=== PATIENT | male | born 1950 | race Caucasian/White ===

== ENCOUNTER 2020-08-14 13:03 | Emergency (ER) | payer MEDICARE, BC, SELFPAY ==
--- NOTE | ~2020-08-14 | XR_ITS ---
EXAMINATION:XR cervical spine 4-5V DATE: 08/14/2020 15:26 INDICATION: Neck pain TECHNIQUE: AP, lateral, lateral swimmers and odontoid views of the cervical spine are provided. COMPARISON: 02/03/2005 FINDINGS: Alignment is normal. There are changes of anterior fusion from C4 through C7 with plate and screw fixation from C5 through C7. The orthopedic hardware is intact. The odontoid is intact. No fra cture is identified. The vertebral body heights are normal. There is moderate loss of intervertebral disc space height at C3-4. There is advanced facet osteoarthritis at C3-4. Prevertebral soft tissues are normal. IMPRESSION: 1. Moderate cervical spondylosis and changes of anterior fusion without acute findings or significant interval change. Reviewed, dictated and finalized at location A. IMPRESSION: 1. Moderate cervical spondylosis and changes of anterior fusion without acute f indings or significant interval change.
[2020-08-14 13:08] VITALS: BP 117/60; PULSE 78; RESP 18; TEMP 36.2; O2SAT 98
--- NOTE | 2020-08-14 13:12 | ECG_ITS ---
Measurements Intervals Marks Rate: 77 P: 71 OH: 145 QRS: -26 QRSD: 105 T: 75 QT: 362 QTc: 410 Interpretive Statements SINUS RHYTHM INCOMPLETE RIGHT BUNDLE BRANCH BLOCK ANTEROSEPTAL INFARCT, AGE INDETERMINATE BASELINE ARTIFACT- I, III, AVR, AVL, AVF, V2 ABNORMAL ECG Electronically Signed On 08-14-2020 13:26:35 CDT by Calvin Vasquez D.O.
--- NOTE | 2020-08-14 14:59 | ED.GENADULT ---
HPI - General Adult General Chief complaint: Neck Pain/Injury <Gavin Mccray PA-C - Last Filed: 08/14/20 16:37> Stated complaint: neck pain, chronic arm pain onset 0300 this am <Gavin Mccray PA-C - Last Filed: 08/14/20 16:37> Time Seen by Provider: 08/14/20 14:35 <VESTA Galloway Last Filed: 08/14/20 16:37> History of Present Illness HPI narrative: Pain in over entire posterior neck radiating into posterior head. Pain for the last 5 days. No NANI. Pain is constant, sharp with movments. Dull at rest. Made worse with movements of head & neck. Had some radiating pain down left arm intermittently x since last night. Admits to previous history of similar sxs - once was due to loose hardware that required surgery, another time he had this pain is was actually an [place]. Has been trying heat at home. Takes tramadol for chronic back pain, this is not helping with his neck pain. No fevers, CP, SOB. No numbness or weakness. <VESTA Galloway Last Filed: 08/14/20 16:37> Related Data Home medications: Home Medications Medication Instructions Recorded Confirmed albuterol sulfate [ProAir HFA] INHALATION 08/14/20 alprazolam 08/14/20 atorvastatin 08/14/20 baclofen mg 08/14/20 clopidogrel 08/14/20 escitalopram oxalate mg 08/14/20 fluticasone propionate INTRANASAL 08/14/20 metoprolol succinate PO 08/14/20 nitroglycerin mg 08/14/20 pregabalin 08/14/20 ranolazine mg PO 08/14/20 tramadol mg 08/14/20 08/14/20 <VESTA Galloway Last Filed: 08/14/20 16:37> Allergies/adverse reactions: Allergies Allergy/AdvReac Type Severity Reaction Status Date / Time No Known Allergies Allergy Verified 08/14/20 13:10 <VESTA Galloway Last Filed: 08/14/20 16:37> Review of Systems Constitutional: Constitutional: Reports as per HPI, Denies fever(s), Denies night sweats and Denies weakness <Gavin EnnisVESTA newton - Last Filed: 08/14/20 16:37> Cardiovascular: Cardiovascular: Denies chest pain, Denies edema, Denies leg edema, Denies dyspnea and Denies orthopnea <Gavin DohertyVESTA cannon - Last Filed: 08/14/20 16:37> Respiratory: Respiratory: Denies cough and Denies dyspnea <Gavin EnnisVESTA newton - Last Filed: 08/14/20 16:37> Gastrointestinal: Gastrointestinal: Denies abdominal pain, Denies constipation, Denies diarrhea, Denies nausea and Denies vomiting <Gavin Galvez VESTA Mccray Last Filed: 08/14/20 16:37> Musculoskeletal: Musculoskeletal: Denies abnormal gait, Denies back pain, Reports neck pain, Denies numbness and Denies tingling <Gavin EnnisVESTA newton - Last Filed: 08/14/20 16:37> Neurologic: Denies Abnormal speech present, Denies abnormal gait, Denies numbness, Denies tingling and Denies weakness <Gavin EnnisVESTA newton - Last Filed: 08/14/20 16:37> Psychiatric: Psychiatric: Denies homicidal ideation and Denies suicidal ideation <Gavin EnnisVESTA newton Last Filed: 08/14/20 16:37> [facility] Social History Social History: Social History Gender identity (if verbalized by the patient): Male <Gavin AlfaroVESTA Otero Last Filed: 08/14/20 16:37> Exam Const: General: cooperative, healthy appearing, comfortable, no acute distress, well developed, alert, awake and Physically active <Gavin DominicVESTA Otero Last Filed: 08/14/20 16:37> Orientation/consciousness: patient oriented x3 <Gavin DominicVESTA Otero Last Filed: 08/14/20 16:37> HENMT: Head: normal to inspection, normocephalic and atraumatic <Gavin DominicVESTA Otero Last Filed: 08/14/20 16:37> Ears: external ears normal <Gavin Mccray PA-C - Last Filed: 08/14/20 16:37> General nose exam: Normal external nose present <VESTA Galloway Last Filed: 08/14/20 16:37> Eyes: Pupils: Equal, round and reactive pupils present <VESTA Galloway Last Filed: 08/14/20 16:37> EOM: EOMs intact bilaterally <St
[2020-08-14 16:12] LABS: Troponin I < 0.012 ng/mL (0.000-0.034)
[2020-08-14 16:15] VITALS: BP 126/99; PULSE 72; RESP 18; TEMP 36.1; O2SAT 98
[2020-08-14] MEDS: oxyCODONE/ACETAMINOPHEN (*CRX) 5-325 MG TABLET 1 TABLET PO (16:17)
[2020-08-14] MEDS: KETOROLAC (*BKC) 60 MG/2 ML VIAL (16:17)
== END 2020-08-14 16:51 | disposition home or self-care (01) ==
PROVIDERS: Physician Assistant Medical; Emergency Provider General Practice; PCP Nurse Practitioner Adult Health
DX: S16.1XXA Strain of muscle, fascia and tendon at neck level, initial encounter (principal); I25.2 Old myocardial infarction; X58.XXXA Exposure to other specified factors, initial encounter; I45.10 Unspecified right bundle-branch block
CPT/HCPCS: 36415; 72050; 84484; 93005; 99284; A9270; J1885

== ENCOUNTER → 2021-01-28 04:07 | Outpatient (CLI) | payer MEDICARE, BC, SELFPAY ==
[2021-01-28 18:26] LABS: SARS-CoV-2 RNA PCR Negative
== END ==
PROVIDERS: PCP Nurse Practitioner Adult Health; Visit Provider Anesthesiology
DX: G90.523 Complex regional pain syndrome I of lower limb, bilateral (principal); Z20.822 Contact with and (suspected) exposure to COVID-19
CPT/HCPCS: C9803; U0003; U0005

== ENCOUNTER → 2021-04-22 04:04 | Outpatient (CLI) | payer MEDICARE, BC, SELFPAY ==
[2021-04-25 20:38] LABS: SARS-CoV-2 RNA PCR Negative
== END ==
PROVIDERS: PCP Nurse Practitioner Adult Health; Visit Provider Nurse Practitioner Adult Health
DX: R68.89 Other general symptoms and signs (principal); Z20.822 Contact with and (suspected) exposure to COVID-19
CPT/HCPCS: C9803; U0003; U0005

== ENCOUNTER → 2022-02-28 08:44 | Outpatient (CLI) | payer MEDICARE, BC, SELFPAY ==
--- NOTE | ~2022-02-28 | US_ITS ---
US scrotum doppler DATE: 02/28/2022 09:22 INDICATION: Left scrotal lump for one week TECHNIQUE: Attending, flow imaging and Doppler analysis of the scrotal contents COMPARISON: None FINDINGS: Moderately prominent bilateral hydroceles are noted. There is homogeneous and symmetric ech otexture of the testicles. No testicular mass lesion or torsion is detected. Vascular flow is noted t o both testicles. Within the left scrotal sac adjacent to the epididymis is an approximately 1.2 x 1.4 cm soft tissue d ensity with prominent central calcifications, benign in appearance. No varicocele is evident. IMPRESSION: Moderate bilateral hydroceles No testicular mass lesion or torsion Reviewed, dictated and finalized at Location A. Reviewed, dictated and finalized at location A.
== END ==
PROVIDERS: PCP Nurse Practitioner Adult Health; Visit Provider Nurse Practitioner Adult Health
DX: N50.89 Other specified disorders of the male genital organs (principal); N43.3 Hydrocele, unspecified
CPT/HCPCS: 76870; 93976

== ENCOUNTER 2023-02-28 11:32 | Outpatient (CLI) | payer MEDICARE, BC, SELFPAY ==
--- NOTE | ~2023-02-28 | XR_ITS ---
Right Hand Technique: PA, oblique, and lateral views were obtained. Clinical History: Osteoarthritis Findings: No acute fracture or dislocation is seen. There is mild degenerative change of the interpha langeal joint of the thumb. Soft tissues are unremarkable. Impression: Mild degenerative change of the interphalangeal joint of the thumb. Reviewed, dictated and finalized at location . Impression: Mild degenerative change of the interphalangeal joint of the thumb.
--- NOTE | ~2023-02-28 | XR_ITS ---
Left Hand Technique: PA, oblique, and lateral views were obtained. Clinical History: Osteoarthritis Findings: No acute fracture or dislocation is seen. Osseous alignment is anatomic. Joint spaces are p reserved. Soft tissues are unremarkable. Impression: Unremarkable left hand. Reviewed, dictated and finalized at location M. Impression: Unremarkable left hand.
== END 2023-02-28 11:33 | disposition home or self-care (01) ==
LOC: ANHBWCIMG 11:34
PROVIDERS: PCP Family Medicine; Visit Provider Nurse Practitioner Adult Health
DX: M19.041 Primary osteoarthritis, right hand (principal)
CPT/HCPCS: 73130

== ENCOUNTER 2023-03-26 13:57 | Outpatient (CLI) | payer MEDICARE, BC, SELFPAY ==
--- NOTE | 2023-03-26 15:00 | NEURO_ITS ---
Impression: # Complains of numbness of fingers. Has bilateral flexion contracture of fingers. # Bilateral mild Carpal Tunnel Syndrome. # Bilateral ulnar neuropathy across the elbows. # Normal needle/EMG exam. Nerve Conduction Studies Anti Sensory Summary Table Stim Site NR Peak (ms) P-T Amp (?V) Site1 Site2 Delta-P (ms) Dist (cm) Raghavendra (m/s) Left Median Anti Sensory (2-3nd Digit) Wrist 4.2 19.7 Wrist 2-3nd Digit 4.2 14.0 33 Wrist 4.3 21.0 Wrist 2-3nd Digit 4.2 14.0 33 Right Median Anti Sensory (2-3nd Digit) Wrist 3.8 20.7 Wrist 2-3nd Digit 3.8 14.0 37 Wrist 3.9 14.8 Wrist 2-3nd Digit 3.8 14.0 37 Left Radial Anti Sensory (Base 1st Digit) Wrist 2.2 18.4 Wrist Base 1st Digit 2.2 0.0 Right Radial Anti Sensory (Base 1st Digit) Wrist 2.2 17.5 Wrist Base 1st Digit 2.2 0.0 Left Ulnar Anti Sensory (5th Digit) Wrist 2.4 42.2 Wrist 5th Digit 2.4 14.0 58 Right Ulnar Anti Sensory (5th Digit) Wrist 2.6 33.7 Wrist 5th Digit 2.6 14.0 54 Motor Summary Table Stim Site NR Onset (ms) O-P Amp (mV) Site1 Site2 Delta-0 (ms) Dist (cm) Raghavendra (m/s) Left Median Motor (Abd Poll Brev) Wrist 4.0 4.2 Elbow Wrist 4.9 29.0 59 Elbow 8.9 4.3 Right Median Motor (Abd Poll Brev) Wrist 3.7 2.2 Elbow Wrist 4.7 28.0 60 Elbow 8.4 1.7 Left Ulnar Motor (Abd Dig Minimi) Wrist 2.3 6.1 A Elbow Wrist 5.9 29.0 49 A Elbow 8.2 6.0 B Elbow Wrist 4.2 23.0 55 B Elbow 6.5 3.3 Right Ulnar Motor (Abd Dig Minimi) Wrist 2.3 6.7 A Elbow Wrist 5.7 29.0 51 A Elbow 8.0 6.3 B Elbow Wrist 3.5 20.0 57 B Elbow 5.8 3.4 F Wave Studies NR F-Lat (ms) L-R F-Lat (ms) Left Median (Mrkrs) (Abd Poll Brev) 27.84 0.99 Right Median (Mrkrs) (Abd Poll Brev) 28.83 0.99 Left Ulnar (Mrkrs) (Abd Dig Min) 28.83 0.47 Right Ulnar (Mrkrs) (Abd Dig Min) 29.30 0.47 EMG Side Muscle Nerve Root Ins Act Fibs Amp Dur Recrt Comment Right 1stDorInt Ulnar C8-T1 Nml Nml Nml Nml Nml Right Ext Indicis Radial (Post Int) C7-8 Nml Nml Nml Nml Nml Right Ext Digitorum Radial (Post Int) C7-8 Nml Nml Nml Nml Nml Right BrachioRad Radial C5-6 Nml Nml Nml Nml Nml Right PronatorTeres Median C6-7 Nml Nml Nml Nml Nml Right Abd Poll Brev Median C8-T1 Nml Nml Nml Nml Nml Left 1stDorInt Ulnar C8-T1 Nml Nml Nml Nml Nml Left Ext Indicis Radial (Post Int) C7-8 Nml Nml Nml Nml Nml Left Ext Digitorum Radial (Post Int) C7-8 Nml Nml Nml Nml Nml Left BrachioRad Radial C5-6 Nml Nml Nml Nml Nml Left PronatorTeres Median C6-7 Nml Nml Nml Nml Nml Left Abd Poll Brev Median C8-T1 Nml Nml Nml Nml Nml MTDD
== END 2023-03-26 13:58 | disposition home or self-care (01) ==
LOC: ANHNEURO 13:59
PROVIDERS: PCP Family Medicine; Visit Provider Plastic Surgery
DX: G56.03 Carpal tunnel syndrome, bilateral upper limbs (principal); G56.23 Lesion of ulnar nerve, bilateral upper limbs
CPT/HCPCS: 95886; 95911

== ENCOUNTER 2023-06-20 00:30 | Day surgery (SDC) | payer MEDICARE, BC, SELFPAY ==
--- NOTE | 2023-06-07 13:20 | PC.NURSE ---
Report to the Outpatient Waiting Room, entrance under the green pavilion located off [facility], at time _0830 on date _06/20/23 . Planned Procedure Time: __1030 . Time changes happen often and if your time is changed the preop area will call you the afternoon before. - You and your visitor will be asked to self-screen and do not enter if you have any COVID symptoms. - A mask is optional within the hospital at this time. NOTHING TO EAT OR DRINK 8 HOURS PRIOR TO SURGERY PER DR ABERNATHY Take the following medications with a SIP of water the morning of surgery: _ALPRAZOLAM, ISOSORBIDE,METOPROLOL,PREGABALIN DO NOT STOP ANY OF YOUR OTHER PRESCRIPTION MEDICATIONS PRIOR TO SURGERY ?EXCEPT THE FOLLOWING Medications to discontinue per physician ___PT TO CALL DR NUÑEZ REGARDING WHEN TO HOLD ASPIRIN AND PLAVIX Please no make-up, nail andorran, hairspray, perfume, deodorant, or body powder the day of surgery. No jewelry (including any body piercings) or valuables the day of surgery, leave them at home. Please take a shower or bath the night before, or the morning of, surgery with an antibacterial soap. Wear comfortable, loose fitting clothing. Children are encouraged to wear pajamas. - Jewelry must be removed prior to entering the operating room. Rings and piercings that are not removed may be cut off. - The hospital will not accept responsibility for valuables. - Please leave all valuables, including medications, at home the day of surgery. If you are going home after surgery, a licensed pile driver must drive you home. - NO public transportation without another adult if you receive anesthesia. - We recommend that an adult stay with you for 24 hours following discharge. - We also recommend that you do not drive, make important decision, drink alcoholic beverages, or take any drugs that were not prescribed by your health care provider for at least 24 hours after your discharge time. Follow any additional instructions given to you from your surgeon. If you or anyone in your household have experienced Covid symptoms in the past week, please notify your surgeon or the nurse liaison at the phone number below for possible testing. Telephone instructions given to __PATIENT and asked if any additional questions and then verbalized understanding. Patient advised to call surgeon office or pre surgery nurse liaison [phone] if any additional questions.
[2023-06-07 13:28] VITALS: BMI 28.8
--- NOTE | 2023-06-19 14:23 | WPDANESEPPF ---
Anes - Initial Pre Proc Eval Procedure: Operation Date: 06/20/23 10:00 Proposed Procedures p Left Endoscopic Carpal Tunnel Release, Possible Open, - Ramses Shabazz MD s Left Cubital Tunnel Release, Left Middle and Ring Finger A1 Shabnam Release, Right Middle and Ring Finger Steroid Injection - Ramses Shabazz MD Date/Time: 06/19/23 14:23 Surgeon: Ramses Shabazz MD Pre Op Diagnosis: trigger finger of all digit both hands, carpal tu Patient Data Age: 72 Gender: M Height: 1.75 m Weight: 88.45 kg Allergies Allergy/AdvReac Type Severity Reaction Status Date / Time No Known Allergies Allergy Verified 06/27/23 10:47 Home Medications Medication Instructions Recorded Confirmed Type albuterol sulfate 90 mcg/actuation 1 puff inhalation PRN PRN 08/14/20 06/27/23 History aerosol inhaler (ProAir HFA) Shortness Of Breath atorvastatin 40 mg tablet 40 mg PO DAILY 08/14/20 06/27/23 History clopidogrel 75 mg tablet 75 mg PO DAILY 08/14/20 06/27/23 History escitalopram oxalate 10 mg tablet 10 mg PO HS 08/14/20 06/27/23 History fluticasone propionate 50 2 spray intranasal PRN PRN Allergy 08/14/20 06/27/23 History mcg/actuation nasal Symptoms spray,suspension metoprolol succinate 25 mg 25 mg PO DAILY 08/14/20 06/27/23 History tablet,extended release 24 hr nitroglycerin 0.4 mg sublingual 0.4 mg sublingual PRN PRN Chest 08/14/20 06/27/23 History tablet Pain isosorbide mononitrate 60 mg 60 mg PO DAILY 11/28/22 06/27/23 History tablet,extended release 24 hr lidocaine 5 % topical patch 2 patch topical DAILY 11/28/22 06/27/23 History (Lidoderm) alprazolam 0.25 mg tablet 0.25 mg PO DAILY PRN anxiety #30 05/17/23 06/27/23 Rx tabs pregabalin 150 mg capsule 150 mg PO BID #60 caps 05/17/23 06/27/23 Rx aspirin 81 mg tablet,delayed 81 mg PO DAILY 06/07/23 06/27/23 History release (Adult Low Dose Aspirin) baclofen 10 mg tablet 10 mg PO PRN PRN muscle spasm 06/07/23 06/27/23 History tramadol 50 mg tablet 50 mg PO Q6H PRN pain #8 tabs 06/20/23 06/27/23 Rx Patient hx anesthesia problems: none Family hx anesthesia problems: none Results Review: All pre-operative results and documents have been reviewed as part of the pre-operative evaluation. [facility] Past Medical History Medical History (Updated 06/27/23 @ 11:03 by Destiny Magana APRN) CAD (coronary artery disease) History of heart attack Hypertension TIA (transient ischemic attack) 2003 Surgical History Surgical History (Updated 06/19/23 @ 14:25 by Gavin Webber DO) History of cholecystectomy History of coronary artery stent placement History of spinal fusion Family History Family History (Updated 11/28/22 @ 14:51 by Emily Engel MA) Father Heart disease Cerebrovascular accident Mother Throat cancer Sibling History of ETOH abuse Social History Social History (Updated 03/02/23 @ 11:13 by Raven Zacarias MA) Smoking packs per day: 1.5 Smoking cigarettes per day: 30.0 Years smoked: 50 Smoking pack-years: 75.00 Smoking status: Former smoker Tobacco type: cigarettes and e-cigarettes/vaping Smoking end date: 05/07/14 Additional smoking assessment comments: CURRENTLY VAPES X 9 YRS Alcohol intake: never Substance use: never Lack of Transportation: No Lack of Food: Never True Current Housing: I Have Housing Concerned About Future Housing: No Difficulty Paying Gas/Electric Bills: No Difficulty Paying for Meds: No Currently Unemployed: No Education: High School Diploma/GED Difficulty w/ Childcare or Family Care: No Living arrangements: with family Gender identity (if verbalized by the patient): Male Spiritual care concerns: No Agree to blood products: Yes Anes - Eval Final PreProcedure Day of Procedure 06/19/23 14:23 Patient weight: overweight Heart: regular rate and rhythm Lungs: clear to auscultation Airway: Mallampati scale class II Ne
--- NOTE | 2023-06-20 07:05 | PM.HPGS ---
History of Present Illness History of Present Illness Chief complaint: trigger finger of all digit both hands, carpal tu Narrative: Patient seen and examined in pre-operative holding area. No interval change in medical history or symptoms. Patient recalls previous discussion of benefits and alternatives to procedure. Continues to desire to proceed with left endoscopic possible open carpal tunnel release left cubital tunnel release left middle and ring finger a1 opal release and right middle and ring finger trigger finger steroid injection. Reviewed procedure, post-op expectations and risks including but not limited to bleeding, infection, injury to tendon/nerve/vessel, decreased hand function, stiffness, RSD, no change or worsening of symptoms. Discussed steroid injection, indications, expectations and risks. risks including but not limited to bleeding, bruising, pain, pigmentation changes at injection site and change in blood sugar. I discussed the possible use of assistants and their participation in the case. Patient stated understanding and signed the consent form wishing to proceed. Review of Systems Review of Systems: All systems reviewed & are unremarkable except as noted in HPI and below PMFSH Past Medical History Medical History (Updated 06/19/23 @ 14:25 by Gavin Webber DO) CAD (coronary artery disease) History of heart attack Hypertension TIA (transient ischemic attack) 2003 Surgical History Surgical History (Updated 06/19/23 @ 14:25 by Gavin Webber DO) History of cholecystectomy History of coronary artery stent placement History of spinal fusion Family History Family History (Updated 11/28/22 @ 14:51 by Emily Engel MA) Father Heart disease Cerebrovascular accident Mother Throat cancer Sibling History of ETOH abuse Social History Social History (Updated 03/02/23 @ 11:13 by Raven Zacarias MA) Smoking packs per day: 1.5 Smoking cigarettes per day: 30.0 Years smoked: 50 Smoking pack-years: 75.00 Smoking status: Former smoker Tobacco type: cigarettes and e-cigarettes/vaping Smoking end date: 05/07/14 Additional smoking assessment comments: CURRENTLY VAPES X 9 YRS Alcohol intake: never Substance use: never Lack of Transportation: No Lack of Food: Never True Current Housing: I Have Housing Concerned About Future Housing: No Difficulty Paying Gas/Electric Bills: No Difficulty Paying for Meds: No Currently Unemployed: No Education: High School Diploma/GED Difficulty w/ Childcare or Family Care: No Living arrangements: with family Gender identity (if verbalized by the patient): Male Spiritual care concerns: No Agree to blood products: Yes Meds Home Medications and Allergies Home Medications Medication Instructions Recorded Confirmed Type albuterol sulfate 90 mcg/actuation 1 puff inhalation PRN PRN 08/14/20 06/07/23 History aerosol inhaler (ProAir HFA) Shortness Of Breath atorvastatin 40 mg tablet 40 mg PO DAILY 08/14/20 06/07/23 History clopidogrel 75 mg tablet 75 mg PO DAILY 08/14/20 06/07/23 History escitalopram oxalate 10 mg tablet 10 mg PO HS 08/14/20 06/07/23 History fluticasone propionate 50 2 spray intranasal PRN PRN Allergy 08/14/20 06/07/23 History mcg/actuation nasal Symptoms spray,suspension metoprolol succinate 25 mg 25 mg PO DAILY 08/14/20 06/07/23 History tablet,extended release 24 hr nitroglycerin 0.4 mg sublingual 0.4 mg sublingual PRN PRN Chest 08/14/20 06/07/23 History tablet Pain isosorbide mononitrate 60 mg 60 mg PO DAILY 11/28/22 06/07/23 History tablet,extended release 24 hr lidocaine 5 % topical patch 2 patch topical DAILY 11/28/22 06/07/23 History (Lidoderm) alprazolam 0.25 mg tablet 0.25 mg PO DAILY PRN anxiety #30 05/17/23 06/07/23 Rx tabs pregabalin 150 mg capsule 150 mg PO BID #60 caps 05/17/23 06/07/23 Rx aspirin 81 mg tablet,delayed 81 mg PO DAILY 06/07/23
--- NOTE | 2023-06-20 07:07 | W.PM.PROC2 ---
Procedure Note - Detailed Date of Procedure 06/20/23 Pre-op Diagnosis left carpal tunnel left cubital tunnel b/l middle and ring trigger finger Post-op Diagnosis Same Procedure Performed left ectr left CutR left middle and ring a1 opal release right middle and ring trigger finger injection Surgeon Ramses Shabazz MD Manager [place] Colleen Coley PA-C Anesthesia MAC Description of Procedure INFORMED CONSENT: The patient was seen and examined and marked in the pre-op area.? The patient signed the consent form. PROCEDURE IN DETAIL:The patient taken back to OR on the stretcher in supine position. Time out performed with anesthesia, surgeon and staff agreeing on patient's name site and surgery to be performed SCDs were placed on the lower extremities and inflated. A tourniquet was placed on {left} upper extremity and antibiotics given IV After anesthesia administered sedation I injected {10}cc 1%lido with epi and 0.5% marcaine plain at the operative sites The?{left upper extremity}?was prepped and draped in sterile fashion the??{left upper extremity} was? exsanguinated with Esmarch bandage and tourniquet inflated to 250mmHg I made a transverse incision in the {left} volar distal wrist crease through skin and dermis with 15 blade scalpel.? Littler scissors spread down to antebrachial fascia. A small incision was made in antebrachial fascia allowing access to Carpal tunnel. I proceeded with sequential dilation staying in line with the ring finger and hugging the hook of the hamate.? I then used the synovial elevator to free any adhesions from the underside of the transverse carpal ligament. Next I was able to insert the Microaire endoscopic carpal tunnel device with direct visualization of the transverse fibers on the monitor and proceeded with complete segmental retrograde release of the ligament in its entirety.? I irrigated with normal saline and closed with 4-0 monocryl for dermis and subcuticular closure. Next I proceeded with making a longitudinal incision over the left ring finger a1 opal through skin and dermis with a 15 blade scalpel. Littler scissors were used to spread down the the a1 opal which was initially incised with a 15 blade then littler scissors were used to spread above and below it proximally and distally and I completed the transection entirely. Ragnell retractors were used to withdraw the FDS and FDP tendons for inspection. They were free of masses and gliding smoothly in the tendon sheath. I irrigated with normal saline and closed with 4-0 chromic. Next I proceeded with making a longitudinal incision over the left middle finger a1 opal through skin and dermis with a 15 blade scalpel. Littler scissors were used to spread down the the a1 opal which was initially incised with a 15 blade then littler scissors were used to spread above and below it proximally and distally and I completed the transection entirely. Ragnell retractors were used to withdraw the FDS and FDP tendons for inspection. They were free of masses and gliding smoothly in the tendon sheath. I irrigated with normal saline and closed with 4-0 chromic. Next, I next proceeded with making a longitudinal incision between two heads for flexor carpi ulnaris at end of {left} cubital tunnel with 15 blade scalpel.? Littler scissors were used to spread down to FCU fascia.? An incision was made in FCU fascia and ulnar nerve identified exiting cubital tunnel.? I proceeded with complete retrograde release of the cubital tunnel including 7cm proximal for the intermuscular septum.? The nerve appeared healthy with visible vaso nervorum.? There was no subluxation on full elbow range of motion. ? I irrigated with normal saline and closure with 3-0 vicryl and 4-0 monocryl. A dressing of Dermabond, 4x4, dottie, and a volar wrist and posterior elbow splint was applied for patient safety, security, and comfort and secured with an paolo bandage after the tourniquet was let down noting the graham
[2023-06-20 08:19] VITALS: BP 116/62; PULSE 62; RESP 18; TEMP 36.1; O2SAT 97
--- NOTE | 2023-06-20 09:01 | WPDHPUPDATE1 ---
History and Physical Update Update Date/Time: 06/20/23 09:01 History and Physical has been reviewed, including an updated exam of the patient. There are NO changes in the patient's condition. Risks, benefits, and alternatives have been discussed and questions answered. Patient agrees to proceed with procedure.
[2023-06-20] MEDS: ceFAZolin 2 GM/D5W 50 ML 2 GM/50 ML BAG IVPB (09:24)
[2023-06-20] MEDS: BETAMETHASONE SOD PHOS/ACETATE 30 MG/5 ML VIAL 12 MG IM (09:41)
[2023-06-20] MEDS: LIDO 1%/EPINEPHRINE 1:100,000 50 ML VIAL INFILTRATE (09:43)
[2023-06-20 10:07] VITALS: BP 103/58; PULSE 70; RESP 14; O2SAT 98
[2023-06-20] MEDS: LACTATED RINGERS 1,000 ML 30 ML IV CONT ×2 (10:07)
[2023-06-20 10:30] VITALS: BP 114/52; PULSE 60; RESP 16; O2SAT 95
[2023-06-20 10:55] VITALS: BP 112/51; PULSE 60; RESP 16
== END 2023-06-20 11:05 | disposition home or self-care (01) ==
PROVIDERS: PCP Family Medicine; Visit Provider Plastic Surgery
PROC: 01N54ZZ Release Median Nerve, Percutaneous Endoscopic Approach (ICD-10-PCS; CPT 29848; principal; 2023-06-20 09:15)
PROC: (CPT 26055; 2023-06-20 09:15)
DX: G56.02 Carpal tunnel syndrome, left upper limb (principal); G56.22 Lesion of ulnar nerve, left upper limb; M65.342 Trigger finger, left ring finger; M65.341 Trigger finger, right ring finger; M65.332 Trigger finger, left middle finger; M65.331 Trigger finger, right middle finger; I10 Essential (primary) hypertension; I25.10 Atherosclerotic heart disease of native coronary artery without angina pectoris; I25.2 Old myocardial infarction; Z86.73 Personal history of transient ischemic attack (TIA), and cerebral infarction without residual deficits; Z95.5 Presence of coronary angioplasty implant and graft; Z98.1 Arthrodesis status; Z79.51 Long term (current) use of inhaled steroids; Z79.02 Long term (current) use of antithrombotics/antiplatelets; Z79.82 Long term (current) use of aspirin; F17.290 Nicotine dependence, other tobacco product, uncomplicated
CPT/HCPCS: 64718; 29848; 26055 ×2; 20550 ×2; J0690; J0702; J2405; J2704; J3010; J7120

== ENCOUNTER 2023-07-11 12:40 | Outpatient (CLI) | payer MEDICARE, BC, SELFPAY ==
--- NOTE | 2023-07-11 12:30 | NEURO_ITS ---
Impression: # Complains of left lower extremity pain. History of multiple lower back and neck surgeries. # Normal Nerve Conduction Study including F-waves. # Needle/EMG exam revealed no fibs or myotonia but decreased motor unit potentials. # Clinical correlation recommended. Nerve Conduction Studies Anti Sensory Summary Table Stim Site NR Peak (ms) P-T Amp (?V) Site1 Site2 Delta-P (ms) Dist (cm) Raghavendra (m/s) Left Saphenous Anti Sensory (Ant Med Mall) 14cm 3.3 1.9 14cm Ant Med Mall 3.3 0.0 Left Sup Fibular Anti Sensory (Ant Lat Mall) 14 cm 3.1 2.8 14 cm Ant Lat Mall 3.1 16.0 52 Left Sural Anti Sensory (Lat Mall) Calf 3.2 19.7 Calf Lat Mall 3.2 16.0 50 Motor Summary Table Stim Site NR Onset (ms) O-P Amp (mV) Site1 Site2 Delta-0 (ms) Dist (cm) Raghavendra (m/s) Left Peroneal Motor (Vastus Med) Ankle 4.0 2.2 Popit Ankle 8.9 44.0 49 Popit 12.9 2.1 Left Tibial Motor (Abd Andrade Brev) Ankle 4.5 7.4 Knee Ankle 8.9 40.0 45 Knee 13.4 4.0 F Wave Studies NR F-Lat (ms) L-R F-Lat (ms) Left Peroneal (Mrkrs) (EDB) 53.92 Left Tibial (Mrkrs) (Abd Hallucis) 54.70 EMG Side Muscle Nerve Root Ins Act Fibs Amp Dur Recrt Comment Left AntTibialis Dp Br Fibular L4-5 Nml Nml Nml Nml Nml Left Gastroc Tibial S1-2 Nml Nml Nml Nml Nml Left Fibularis Long Sup Br Fibular L5-S1 Nml Nml Nml Nml Nml Left Flex Dig Long Tibial L5-S2 Nml Nml Nml Nml Nml Left Ext Dig Brev Dp Br Fibular L5, S1 Nml Nml Nml Nml Nml Left QuadratusFem QuadFemoris L4-5, S1 Nml Nml Decr >12ms +1 MTDD
== END 2023-07-11 12:41 | disposition home or self-care (01) ==
PROVIDERS: PCP Nurse Practitioner Adult Health; Visit Provider Nurse Practitioner Adult Health
DX: R20.2 Paresthesia of skin (principal); Z98.1 Arthrodesis status
CPT/HCPCS: 95886; 95909

== ENCOUNTER 2023-07-23 14:48 | Outpatient (CLI) | payer MEDICARE, BC, SELFPAY ==
--- NOTE | ~2023-07-23 | XR_ITS ---
Cervical Spine: AP, lateral, open-mouth views Clinical History: Pain COMPARISON: 08/14/2020 Findings: There is straightening of the normal cervical lordosis. Stable fusion changes from C4 throu gh C7. Stable hardware. There is moderate degenerative disc narrowing at C3-C4, similar to prior exam . Pre-vertebral soft tissues are unremarkable. Impression: No acute abnormalities. Stable fusion changes from C4 through C7. Moderate degenerative disc narrowing at C3-C4. Reviewed, dictated and finalized at location . Impression: No acute abnormalities. Stable fusion changes from C4 through C7. Moderate degenerative disc narrowing at C3-C4.
== END 2023-07-23 14:49 | disposition home or self-care (01) ==
LOC: ANHLAB 14:51 → ANHIMG 14:52
PROVIDERS: PCP Nurse Practitioner Adult Health; Visit Provider Nurse Practitioner Adult Health
DX: M50.30 Other cervical disc degeneration, unspecified cervical region (principal); Z98.1 Arthrodesis status
CPT/HCPCS: 72040

== ENCOUNTER 2023-08-01 02:34 | Day surgery (SDC) | payer MEDICARE, BC, SELFPAY ==
--- NOTE | 2023-07-23 12:34 | PC.NURSE ---
Report to the Outpatient Waiting Room, entrance under the green pavilion located off [facility], at time _0615 on date __08/01/23 . Planned Procedure Time: __814 . Time changes happen often and if your time is changed the preop area will call you the afternoon before. - You and your visitor will be asked to self-screen and do not enter if you have any COVID symptoms. - A mask is optional within the hospital at this time. NOTHING TO EAT OF DRINK 8 HOURS PRIOR TO SURGERY Take the following medications with a SIP of water the morning of surgery: _ALPRAZOLAM,ISOSORBIDE,METOPROLOL,PREGABALIN DO NOT STOP ANY OF YOUR OTHER PRESCRIPTION MEDICATIONS PRIOR TO SURGERY ?EXCEPT THE FOLLOWING Medications to discontinue per physician ____PT STATES PER DR CONTRERAS DO NOT HOLD ASPIRIN OR PLAVIX Please no make-up, nail danish, hairspray, perfume, deodorant, or body powder the day of surgery. No jewelry (including any body piercings) or valuables the day of surgery, leave them at home. Please take a shower or bath the night before, or the morning of, surgery with an antibacterial soap. Wear comfortable, loose fitting clothing. Children are encouraged to wear pajamas. - Jewelry must be removed prior to entering the operating room. Rings and piercings that are not removed may be cut off. - The hospital will not accept responsibility for valuables. - Please leave all valuables, including medications, at home the day of surgery. If you are going home after surgery, a licensed tow truck driver must drive you home. - NO public transportation without another adult if you receive anesthesia. - We recommend that an adult stay with you for 24 hours following discharge. - We also recommend that you do not drive, make important decision, drink alcoholic beverages, or take any drugs that were not prescribed by your health care provider for at least 24 hours after your discharge time. For Pediatric surgeries, we recommend two adults accompany the child home. Follow any additional instructions given to you from your surgeon. If you or anyone in your household have experienced Covid symptoms in the past week, please notify your surgeon or the nurse liaison at the phone number below for possible testing. Telephone instructions given to _PATIENT and asked if any additional questions and then verbalized understanding. Patient advised to call surgeon office or pre surgery nurse liaison [phone] if any additional questions.
[2023-07-23 12:40] VITALS: BMI 28.8
--- NOTE | 2023-08-01 07:00 | WPDHPUPDATE1 ---
History and Physical Update Update Date/Time: 08/01/23 07:00 Patient seen and examined in pre-operative holding area. No interval change in medical history or symptoms. Patient recalls previous discussion of benefits and alternatives to procedure. Continues to desire to proceed with right endoscopic possible open carpal tunnel release, right cubital tunnel release, and right middle finger a1 opal release. Reviewed procedure, post-op expectations and risks including but not limited to bleeding, infection, injury to tendon/nerve/vessel, decreased hand function, stiffness, RSD, no change or worsening of symptoms. I discussed the possible use of assistants and their participation in the case. Patient stated understanding and signed the consent form wishing to proceed.
--- NOTE | 2023-08-01 07:00 | WPDANESEPPF ---
Anes - Initial Pre Proc Eval Procedure: Operation Date: 08/01/23 08:15 Proposed Procedures p Right Endoscopic Carpal Tunnel Release, Possible Open, Right Cubital Tunnel Release - Ramses Shabazz MD s Right Middle Trigger Finger Release - Ramses Shabazz MD Date/Time: 08/01/23 07:00 Surgeon: Ramses Shabazz MD Pre Op Diagnosis: rt carpal tunnel syndrome, lesion of ulnar nerve Patient Data Age: 72 Gender: M Height: 1.75 m Weight: 88.45 kg Allergies Allergy/AdvReac Type Severity Reaction Status Date / Time No Known Allergies Allergy Verified 07/23/23 12:32 Home Medications Medication Instructions Recorded Confirmed Type albuterol sulfate 90 mcg/actuation 1 puff inhalation PRN PRN 08/14/20 07/23/23 History aerosol inhaler (ProAir HFA) Shortness Of Breath atorvastatin 40 mg tablet 40 mg PO DAILY 08/14/20 07/23/23 History clopidogrel 75 mg tablet 75 mg PO DAILY 08/14/20 07/23/23 History escitalopram oxalate 10 mg tablet 10 mg PO HS 08/14/20 07/23/23 History fluticasone propionate 50 2 spray intranasal PRN PRN Allergy 08/14/20 07/23/23 History mcg/actuation nasal Symptoms spray,suspension metoprolol succinate 25 mg 25 mg PO DAILY 08/14/20 07/23/23 History tablet,extended release 24 hr nitroglycerin 0.4 mg sublingual 0.4 mg sublingual PRN PRN Chest 08/14/20 07/23/23 History tablet Pain isosorbide mononitrate 60 mg 60 mg PO DAILY 11/28/22 07/23/23 History tablet,extended release 24 hr lidocaine 5 % topical patch 2 patch topical DAILY 11/28/22 07/23/23 History (Lidoderm) pregabalin 150 mg capsule 150 mg PO BID #60 caps 05/17/23 07/23/23 Rx aspirin 81 mg tablet,delayed 81 mg PO DAILY 06/07/23 07/23/23 History release (Adult Low Dose Aspirin) baclofen 10 mg tablet 10 mg PO PRN PRN muscle spasm 06/07/23 07/23/23 History tramadol 50 mg tablet 50 mg PO Q6H PRN pain #8 tabs 06/20/23 07/23/23 Rx alprazolam 0.25 mg tablet 0.25 mg PO DAILY PRN anxiety #30 07/10/23 07/23/23 Rx tabs Patient hx anesthesia problems: none Family hx anesthesia problems: none Results Review: All pre-operative results and documents have been reviewed as part of the pre-operative evaluation. [facility] Past Medical History Medical History CAD (coronary artery disease) History of heart attack Hypertension TIA (transient ischemic attack) 2003 Surgical History Surgical History History of cholecystectomy History of coronary artery stent placement History of spinal fusion Family History Family History Father Heart disease Cerebrovascular accident Mother Throat cancer Sibling History of ETOH abuse Social History Social History Smoking packs per day: 1.5 Smoking cigarettes per day: 30.0 Years smoked: 50 Smoking pack-years: 75.00 Smoking status: Current every day smoker Tobacco type: cigarettes and e-cigarettes/vaping Smoking end date: 05/07/14 Additional smoking assessment comments: CURRENTLY VAPES X 9 YRS Alcohol intake: never Substance use: never Lack of Transportation: No Lack of Food: Never True Current Housing: I Have Housing Concerned About Future Housing: No Difficulty Paying Gas/Electric Bills: No Difficulty Paying for Meds: No Currently Unemployed: No Education: High School Diploma/GED Difficulty w/ Childcare or Family Care: No Living arrangements: with family Gender identity (if verbalized by the patient): Male Spiritual care concerns: No Agree to blood products: Yes Anes - Eval Final PreProcedure Day of Procedure 08/01/23 07:00 Patient weight: overweight Heart: regular rate and rhythm Lungs: decreased breath sounds Airway: Mallampati scale class II, special considerations poor extension and other (edentulo
--- NOTE | 2023-08-01 07:00 | W.PM.PROC2 ---
Procedure Note - Detailed Date of Procedure 08/01/23 Pre-op Diagnosis right carpal and cubital tunnel sydrome and right middle finger triggering Post-op Diagnosis Same Procedure Performed right ectr & CuTR and middle finger a1 opal release Surgeon Ramses Shabazz MD Head Stock Transfer Clerk Hernan Coley PA-C Anesthesia MAC Description of Procedure INFORMED CONSENT: The patient was seen and examined and marked in the pre-op area.? The patient signed the consent form. PROCEDURE IN DETAIL:The patient taken back to OR on the stretcher in supine position. Time out performed with anesthesia, surgeon and staff agreeing on patient's name site and surgery to be performed SCDs were placed on the lower extremities and inflated. A tourniquet was placed on {right} upper extremity and antibiotics given IV After anesthesia administered sedation I injected {10}cc 1%lido with epi and 0.5% marcaine plain at the operative sites The?{right upper extremity}?was prepped and draped in sterile fashion the??{right upper extremity} was? exsanguinated with Esmarch bandage and tourniquet inflated to 250mmHg I made a transverse incision in the {right} volar distal wrist crease through skin and dermis with 15 blade scalpel.? Littler scissors spread down to antebrachial fascia. A small incision was made in antebrachial fascia allowing access to Carpal tunnel. I proceeded with sequential dilation staying in line with the ring finger and hugging the hook of the hamate.? I then used the synovial elevator to free any adhesions from the underside of the transverse carpal ligament. Next I was able to insert the Microaire endoscopic carpal tunnel device with direct visualization of the transverse fibers on the monitor and proceeded with complete segmental retrograde release of the ligament in its entirety.? I irrigated with normal saline and closed with 4-0 monocryl for dermis and subcuticular closure. Next, i made a longitudinal incision over the right middle finger A1 opal through skin and dermis with a 15 blade scalpel. Littler scissors were used to spread down the th A1 opal. An incision was made in the opal with a 15 blade then littler scissors were used to spread above and below it proximally and distally and completed transection entirely. Ragnell retractors were used to withdraw the FDS and FDP tendons from the wound for inspection. They were free of masses and synovitis and gliding smoothly in the sheath without triggering or crepitus. I irrigated with normal saline and closed with 4-0 chromic. Next, I next proceeded with making a longitudinal incision between two heads for flexor carpi ulnaris at end of {right} cubital tunnel with 15 blade scalpel.? Littler scissors were used to spread down to FCU fascia.? An incision was made in FCU fascia and ulnar nerve identified exiting cubital tunnel.? I proceeded with complete retrograde release of the cubital tunnel including 7cm proximal for the intermuscular septum.? The nerve appeared healthy with visible vaso nervorum.? There was no subluxation on full elbow range of motion. ? I irrigated with normal saline and closure with 4-0 monocryl for dermis and subcuticular. A dressing of Dermabond(for wrist and elbow) xeroform (for palm), 4x4, dottie, and a volar wrist and posterior elbow splints were applied for patient safety, security, and comfort and secured with an paolo bandage after the tourniquet was let down noting the hand was warm and well perfused. The patient was then awaken from anesthesia and transferred to the recovery room in stable condition.? Complications - none EBL- 0cc Disposition - home in stable conditions Hernan Coley PA-C was essential for positioinng, retraction, closure and dressing placement [facility] Billing Surgery - Charge Forward: Surgery Billing ([id number] and [id number] for hernan)
[2023-08-01 07:58] VITALS: BP 136/71; PULSE 73; RESP 16; TEMP 36.4; O2SAT 99; BMI 28.8
[2023-08-01] MEDS: LACTATED RINGERS 1,000 ML 30 ML IV CONT (08:10)
[2023-08-01] MEDS: BUPivacaine HCL 0.5% 10 ML AMP INFILTRATE (08:10)
[2023-08-01] MEDS: ceFAZolin 2 GM/D5W 50 ML 2 GM/50 ML BAG IVPB (08:10)
[2023-08-01] MEDS: LIDO 1%/EPINEPHRINE/PF 1:200,000 30 ML VIAL 10 ML XX (08:10)
[2023-08-01 08:52] VITALS: BP 130/58; PULSE 82; RESP 16; O2SAT 96
[2023-08-01 09:15] VITALS: BP 126/61; PULSE 69; RESP 16; O2SAT 96
[2023-08-01 09:45] VITALS: BP 138/57; PULSE 70; RESP 16
== END 2023-08-01 10:14 | disposition home or self-care (01) ==
PROVIDERS: PCP Nurse Practitioner Adult Health; Visit Provider Plastic Surgery
PROC: 01N54ZZ Release Median Nerve, Percutaneous Endoscopic Approach (ICD-10-PCS; CPT 29848; principal; 2023-08-01 08:15)
PROC: (CPT 26055; 2023-08-01 08:15)
DX: M65.341 Trigger finger, right ring finger (principal); G56.21 Lesion of ulnar nerve, right upper limb; G56.01 Carpal tunnel syndrome, right upper limb; I25.10 Atherosclerotic heart disease of native coronary artery without angina pectoris; I25.2 Old myocardial infarction; Z98.1 Arthrodesis status; Z95.5 Presence of coronary angioplasty implant and graft; Z86.73 Personal history of transient ischemic attack (TIA), and cerebral infarction without residual deficits; F17.290 Nicotine dependence, other tobacco product, uncomplicated; Z79.51 Long term (current) use of inhaled steroids; Z79.02 Long term (current) use of antithrombotics/antiplatelets; Z79.82 Long term (current) use of aspirin; Z79.891 Long term (current) use of opiate analgesic
CPT/HCPCS: 64718; 29848; 26055; J0690; J1100; J2371; J2405; J2704; J3010; J7120

== ENCOUNTER 2023-09-12 11:00 | Outpatient (RCR) | payer MEDICARE, BC, SELFPAY ==
--- NOTE | 2023-08-07 13:28 | OPREHPOC ---
Outpatient Therapy Plan of Care This is a Multidisciplinary Plan of Care that may contain components documented by all disciplines (PT, OT, and ST.) PT Problem 1 PT Problem #1 Knowledge Deficit PT Goal 1 Goal *indep with HEP * correct neck posture with exercises PT Problem 2 PT Problem #2 Pain PT Goal 1 Goal 1* pt report pain at worst of 6/10 2* Neck Disability Index rating of 50% limitation in activity level 3* pt report sleeping tolerance of 2 & 1/2 hours/ time 4* pt report activity tolerance with home activities of 20 minutes PT Problem 3 PT Problem #3 Impaired Flexibility PT Goal 1 Goal increase cervical ROM to improve ability to drive and do home tasks active ROM in sitting 1* cervical rotation R 40' 2* cervical rotation L 40' 3* flexion 30'
--- NOTE | 2023-08-07 13:28 | PTOPEVAL1 ---
Assessment and note entered by Keren Anaya, PT Evaluation Information Assessment Status Evaluation Diagnosis cervicalgia Onset July 06, 2023 Subjective Information woke up with neck pain, unable to get out of bed that day, had to have help moving around; NOW- can move around by himself; but activity limited xray cervical: stable fusion C 4-7; moderate narrowing C 3-4; Activity: not working; indep with bathing, dressing, light home tasks; can assist PRN with home tasks; Reported Pain Level Pain Score Self Report Additional Pain Score Comments pain range in the past week 5-10/10; R and L cervical, base of head, L > R posterior shoulder and to back of head; increase pain: driving, any activity - up and moving about 10 minutes only; decrease pain: heating pad, tramadol, muscle relaxers--has and was taking for legs; arthritis muscle cream; with sleepin-60 min at time, then wake up with pain; has been sleeping on the couch with head propped up; Assessment PT Clinical Summary Michele has the diagnosis of cervicalgia. Onset with awakening one morning and could not get out of bed . Pain has decreased since onset, but limiting his activity level, sleeping and driving tolerances. His medical history includes cervical surgery x 2 and lumbar surgery x 6 and recent R carpal tunnel and trigger finger release surgery. Neck Disability Index score of 72% limitation in activity. With the evaluation: decreased cervical ROM with rotation R/L and flexion/extension and all increase pain; poor standing posture with forward head and rounded shoulders and thoracic spine; and spasms throughout entire cervical-thoracic- upper traps areas. Skilled PT services are indicated for modalities to decrease pain and spasms, therapeutic exercises to increase cervical ROM, improve position of neck and education for posture and HEP. Plan of Care Interventions Electr
--- NOTE | 2023-09-12 11:10 | PCPTNOTE ---
pt was 10 min late for reeval appt today.
--- NOTE | 2023-09-12 11:55 | PTOPDC ---
Assessment and note entered by Keren Anaya, PT Discharge Information Assessment Status Discharge Diagnosis cervicalgia Onset July 06, 2023 Subjective Information therapy has helped my neck- able to move it more and not hurting as much; doing the exercises and trying to fix my posture with sitting in the car; just got a home stim unit from his friend yesterday Reported Pain Level Pain Score Self Report Additional Pain Score Comments pain range in the past week 0-5/10; decrease pain: sit in recliner with head supported ; heating pad; take tramadol for fingers--not for neck pain; pain increase with turning head to R or L; L worse and turn too fast, like when driving; riding in car; reported tolerances: sleeping is not disturbed due to neck pain; does have finger and hand pain- related to finger surgery; activity tolerance around the house about 2 hours; friend gave him a home stim unit; his ordered him a theracane for trigger point massage; Assessment PT Clinical Summary Michele has received 8 PT sessions. Compared to the initial evaluation; pain rating from 5-10/10 to 0-5/10; self assessment with Neck Disability Index rating from 72 to 40% limitation in activity; reported sleeping, driving and activity tolerances increased; increased cervical rotation to R and L, but still increases pain, to L more pain than R; flexion and extension also increase pain; no longer has increase in cervical pain with active R shoulder motions; education completed for HEP and posture/positioning of neck. The goals were partially achieved. Discharge PT. He is to continue with his HEP and posture correction. Plan of Care PT Services Indicated No
== END 2023-09-12 12:42 | disposition home or self-care (01) ==
LOC: ANHPT 11:00
PROVIDERS: PCP Nurse Practitioner Adult Health; Visit Provider Nurse Practitioner Adult Health
DX: M54.2 Cervicalgia (principal)
CPT/HCPCS: 97014; 97110; 97140; 97161; 97530; G0283

== ENCOUNTER 2023-09-24 10:52 | Outpatient (CLI) | payer MEDICARE, BC, SELFPAY ==
--- NOTE | ~2023-09-24 | XR_ITS ---
Left Hand Technique: PA, oblique, and lateral views were obtained. Clinical History: Osteoarthritis Findings: No acute fracture or dislocation is seen. Osseous alignment is anatomic. There are scattere d mild degenerative changes of the interphalangeal joints of the fingers. Soft tissues are unremarkab le. Impression: Scattered mild degenerative changes of the interphalangeal joints of the fingers. Reviewed, dictated and finalized at location M. Impression: Scattered mild degenerative changes of the interphalangeal joints of the finger s.
--- NOTE | ~2023-09-24 | XR_ITS ---
Right Hand Technique: PA, oblique, and lateral views were obtained. Clinical History: Osteoarthritis Findings: No acute fracture or dislocation is seen. Osseous alignment is anatomic. Joint spaces are p reserved. Soft tissues are unremarkable. Impression: Unremarkable right hand. Reviewed, dictated and finalized at location M. Impression: Unremarkable right hand.
== END 2023-09-24 10:53 | disposition home or self-care (01) ==
LOC: ANHIMG 10:53
PROVIDERS: PCP Nurse Practitioner Adult Health; Visit Provider Physician Assistant Surgical
DX: M19.042 Primary osteoarthritis, left hand (principal)
CPT/HCPCS: 73130

== ENCOUNTER 2023-10-15 16:12 | Outpatient (CLI) | payer MEDICARE, BC, SELFPAY ==
--- NOTE | ~2023-10-15 | XR_ITS ---
Supine and upright views of the abdomen Clinical history: Abdominal pain Findings: Bowel gas pattern is nonspecific. No evidence for obstruction or free air. No abnormal mass lesion or calcification is seen. Lumbar fixation hardware present. Neurostimulator device present., Secondary clips present. Impression: No acute abnormality. Postprocedural changes and neurostimulator device, as above. Reviewed, dictated and finalized at location . Impression: No acute abnormality. Postprocedural changes and neurostimulator device, as above.
--- NOTE | ~2023-10-15 | XR_ITS ---
EXAMINATION: XR chest 2V 10/15/2023 16:24 INDICATION: Shortness of breath PROCEDURE: 2 view chest COMPARISON: 01/23/2017 FINDINGS: The lungs are clear. The cardiomediastinal silhouette is within normal limits. There are no pleural effusions. There is no pneumothorax suspected. Spinal stimulator lead overlies the mid t horacic spine. There are cervical fusion changes partially visualized. IMPRESSION: 1: NO ACUTE CARDIOPULMONARY DISEASE. Reviewed, dictated and finalized at location B.
== END 2023-10-15 16:13 | disposition home or self-care (01) ==
LOC: ANHBWCIMG 16:14
PROVIDERS: PCP Nurse Practitioner Adult Health; Visit Provider Nurse Practitioner Adult Health
DX: R10.9 Unspecified abdominal pain (principal); R06.00 Dyspnea, unspecified
CPT/HCPCS: 71046; 74018

== ENCOUNTER 2023-11-29 01:29 | Day surgery (SDC) | payer MEDICARE, BC, SELFPAY ==
[2023-11-09 14:11] VITALS: BMI 27.6
--- NOTE | 2023-11-27 14:05 | PC.NURSE ---
Pt notified on 11/09/23 as to when to stop their Plavix, last dose on 11/23. Pt stated understanding.
[2023-11-29 09:00] VITALS: BP 124/68; PULSE 76; RESP 18; TEMP 36.1; O2SAT 98; BMI 28.0
[2023-11-29] MEDS: LACTATED RINGERS 1,000 ML 150 ML IV CONT (09:35)
--- NOTE | 2023-11-29 09:56 | WPDANESEPPF ---
Anes - Initial Pre Proc Eval Procedure: Operation Date: 11/29/23 10:00 Proposed Procedures p Esophagogastroduodenoscopy - Rei Lezama MD Date/Time: 11/29/23 09:56 Surgeon: Rei Lezama MD Pre Op Diagnosis: GERD, Early Satiety, Abnormal wt. loss Patient Data Age: 73 Gender: M Height: 1.75 m Weight: 86.2 kg Last Vital Signs Temp 97 F L 11/29/23 09:00 Pulse 76 11/29/23 09:00 Resp 18 11/29/23 09:00 BP 124/68 11/29/23 09:00 Pulse Ox 98 11/29/23 09:00 O2 Del Method Room Air 11/29/23 09:00 Allergies Allergy/AdvReac Type Severity Reaction Status Date / Time No Known Allergies Allergy Verified 11/29/23 08:58 Home Medications Medication Instructions Recorded Confirmed Type albuterol sulfate 90 mcg/actuation 1 puff inhalation PRN PRN 08/14/20 11/29/23 History aerosol inhaler (ProAir HFA) Shortness Of Breath atorvastatin 40 mg tablet 40 mg PO DAILY 08/14/20 11/29/23 History clopidogrel 75 mg tablet 75 mg PO DAILY 08/14/20 11/29/23 History fluticasone propionate 50 2 spray intranasal PRN PRN Allergy 08/14/20 11/29/23 History mcg/actuation nasal Symptoms spray,suspension metoprolol succinate 25 mg 25 mg PO DAILY 08/14/20 11/29/23 History tablet,extended release 24 hr nitroglycerin 0.4 mg sublingual 0.4 mg sublingual PRN PRN Chest 08/14/20 11/29/23 History tablet Pain aspirin 81 mg tablet,delayed 81 mg PO DAILY 06/07/23 11/29/23 History release (Adult Low Dose Aspirin) tramadol 50 mg tablet 50 mg PO Q6H PRN pain #8 tabs 08/01/23 11/29/23 Rx alprazolam 0.25 mg tablet 0.25 mg PO BID PRN anxiety #60 tabs 09/24/23 11/29/23 Rx diclofenac sodium 1 % topical gel 2 g topical .Q12 #100 grams 09/24/23 11/29/23 Rx escitalopram oxalate 20 mg tablet 20 mg PO DAILY #90 tabs 10/15/23 11/29/23 Rx Patient hx anesthesia problems: none Family hx anesthesia problems: none Results Review: All pre-operative results and documents have been reviewed as part of the pre-operative evaluation. [facility] Past Medical History Medical History CAD (coronary artery disease) History of heart attack Hypertension TIA (transient ischemic attack) 2003 Surgical History Surgical History History of cholecystectomy History of coronary artery stent placement History of spinal fusion Family History Family History Father Heart disease Cerebrovascular accident Mother Throat cancer Sibling History of ETOH abuse Social History Social History Smoking packs per day: 1.5 Smoking cigarettes per day: 30.0 Years smoked: 40 Smoking pack-years: 60.00 Smoking status: Former smoker Tobacco type: cigarettes and e-cigarettes/vaping Smoking end date: 05/07/14 Additional smoking assessment comments: Vaping since 2014 Alcohol intake: never Substance use: never Substance use type: does not use Lack of Transportation: No Lack of Food: Never True Current Housing: I Have Housing Concerned About Future Housing: No Difficulty Paying Gas/Electric Bills: No Difficulty Paying for Meds: No Currently Unemployed: No Education: High School Diploma/GED Difficulty w/ Childcare or Family Care: No Living arrangements: with family Gender identity (if verbalized by the patient): Male Spiritual care concerns: No Agree to blood products: Yes Anes - Eval Final PreProcedure Day of Procedure 11/29/23 09:56 Patient weight: normal Heart: regular rate and rhythm Lungs: clear to auscultation Airway: Mallampati scale class II Neurological: alert and oriented Last oral intake: >/= 8 hours ASA classification: III Emergent: no Anesthetic plan: proceed Anesthesia type and monitoring: general GIVS and standard monitoring Results Review: All pre-operative
--- NOTE | 2023-11-29 10:00 | PM.HPGS ---
History of Present Illness History of Present Illness Consent: Risks, benefits, and alternatives have been discussed and questions answered. Patient agrees to proceed with procedure. Chief complaint: GERD, Early Satiety, Abnormal wt. loss Narrative: Madhu Mota is a 73 year old male here for first egd, h/o dyspepsia only using maalox as needed Review of Systems Review of Systems: All systems reviewed & are unremarkable except as noted in HPI and below PMFSH Past Medical History Medical History CAD (coronary artery disease) History of heart attack Hypertension TIA (transient ischemic attack) 2003 Surgical History Surgical History History of cholecystectomy History of coronary artery stent placement History of spinal fusion Family History Family History Father Heart disease Cerebrovascular accident Mother Throat cancer Sibling History of ETOH abuse Social History Social History Smoking packs per day: 1.5 Smoking cigarettes per day: 30.0 Years smoked: 40 Smoking pack-years: 60.00 Smoking status: Former smoker Tobacco type: cigarettes and e-cigarettes/vaping Smoking end date: 05/07/14 Additional smoking assessment comments: Vaping since 2014 Alcohol intake: never Substance use: never Substance use type: does not use Lack of Transportation: No Lack of Food: Never True Current Housing: I Have Housing Concerned About Future Housing: No Difficulty Paying Gas/Electric Bills: No Difficulty Paying for Meds: No Currently Unemployed: No Education: High School Diploma/GED Difficulty w/ Childcare or Family Care: No Living arrangements: with family Gender identity (if verbalized by the patient): Male Spiritual care concerns: No Agree to blood products: Yes Meds Home Medications and Allergies Home Medications Medication Instructions Recorded Confirmed Type albuterol sulfate 90 mcg/actuation 1 puff inhalation PRN PRN 08/14/20 11/29/23 History aerosol inhaler (ProAir HFA) Shortness Of Breath atorvastatin 40 mg tablet 40 mg PO DAILY 08/14/20 11/29/23 History clopidogrel 75 mg tablet 75 mg PO DAILY 08/14/20 11/29/23 History fluticasone propionate 50 2 spray intranasal PRN PRN Allergy 08/14/20 11/29/23 History mcg/actuation nasal Symptoms spray,suspension metoprolol succinate 25 mg 25 mg PO DAILY 08/14/20 11/29/23 History tablet,extended release 24 hr nitroglycerin 0.4 mg sublingual 0.4 mg sublingual PRN PRN Chest 08/14/20 11/29/23 History tablet Pain aspirin 81 mg tablet,delayed 81 mg PO DAILY 06/07/23 11/29/23 History release (Adult Low Dose Aspirin) tramadol 50 mg tablet 50 mg PO Q6H PRN pain #8 tabs 08/01/23 11/29/23 Rx alprazolam 0.25 mg tablet 0.25 mg PO BID PRN anxiety #60 tabs 09/24/23 11/29/23 Rx diclofenac sodium 1 % topical gel 2 g topical .Q12 #100 grams 09/24/23 11/29/23 Rx escitalopram oxalate 20 mg tablet 20 mg PO DAILY #90 tabs 10/15/23 11/29/23 Rx Allergies Allergy/AdvReac Type Severity Reaction Status Date / Time No Known Allergies Allergy Verified 11/29/23 08:58 Vital Signs Vital Signs - 24 hr 11/29/23 09:00 Temperature 97 F L Pulse Rate 76 Respiratory Rate 18 Blood Pressure 124/68 Pulse Oximetry 98 Oxygen Delivery Room Air Exam Const: General: comfortable and no acute distress HENMT: Face/Nose/Sinus: Normal nares present Eyes: General: appearance normal, both eyes and all related structures Neck: Neck: no JVD Resp: Auscultation: clear to auscultation bilaterally Cardio: Rate: regular rate Rhythm: regular rhythm GI: Inspection: non-distended GI Palp: Yes Soft to palpation Skin: General skin exam: normal color Neuro: General: gait normal Speech: normal speech Extrem: General: normal to
[2023-11-29 10:15] VITALS: BP 80/49; PULSE 55; RESP 18; O2SAT 94
[2023-11-29 10:21] VITALS: BP 111/60
[2023-11-29 10:25] VITALS: BP 102/57; PULSE 54; RESP 16; O2SAT 97
[2023-11-29 10:35] VITALS: BP 124/61; PULSE 50; RESP 20; O2SAT 99
--- NOTE | 2023-11-29 10:37 | SUR.PHASEII ---
Patient to resume Plavix tomorrow per physicians orders. Patient verbalized understanding. Written directions with date given to patient with discharge paperwork.
[2023-11-29 10:45] VITALS: BP 115/53; PULSE 60; RESP 16; O2SAT 99
== END 2023-11-29 10:56 | disposition home or self-care (01) ==
PROVIDERS: PCP Nurse Practitioner Adult Health; Visit Provider Internal Medicine Gastroenterology
PROC: 0DJ08ZZ Inspection of Upper Intestinal Tract, Via Natural or Artificial Opening Endoscopic (ICD-10-PCS; CPT 43235; principal; 2023-11-29 10:00)
DX: K29.80 Duodenitis without bleeding (principal); I25.10 Atherosclerotic heart disease of native coronary artery without angina pectoris; I10 Essential (primary) hypertension; I25.2 Old myocardial infarction; Z86.73 Personal history of transient ischemic attack (TIA), and cerebral infarction without residual deficits; Z95.1 Presence of aortocoronary bypass graft; Z98.1 Arthrodesis status; F17.290 Nicotine dependence, other tobacco product, uncomplicated; Z79.51 Long term (current) use of inhaled steroids; Z79.02 Long term (current) use of antithrombotics/antiplatelets; Z79.82 Long term (current) use of aspirin
CPT/HCPCS: 43239; 88305; J2001; J2371; J2704; J7120

== ENCOUNTER 2023-12-03 09:30 | Outpatient (RCR) | payer MEDICARE, BC, SELFPAY ==
--- NOTE | 2023-10-04 11:05 | OTOPEVAL1 ---
Assessment and note entered by SOCO Sampson/Yves, CHT Evaluation Information Assessment Status Evaluation Diagnosis M19.049 - Primary OA, unspecified hand Subjective Information Patient is right hand dominant and retired. He is 2 months s/p right carpal tunnel release, right middle finger A1 opal release, and right cubital tunnel release. He is 3 months s/p left carpal tunnel release, right middle finger A1 opal release, and right cubital tunnel release. He reports that every morning when he wakes up his right middle finger is stuck in flexion and it takes a while to mobilize it straight. The left intermittently has the same symptoms, but not as frequent. Functionally he reports deficits with gross gripping tasks and heavy tasks. 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 He reports overall his hands feel weak and daily activities are more painful, particularly heavy tasks such as lifting his garage door. Reported Pain Level Pain Score 3: Self Report Additional Pain Score Comments -Patient reports a constant dull, ache in bilateral middle fingers. -He reports at night the right middle finger begins to throb like a bad tooth ache , rating this pain 10/10, to the point where he can't sleep . States he gets up, takes a Tramadol, soaks his hand in warm water, and tries to do ROM. -On the left hand he reports at worst he can experience 10/10 on this hand too, less frequent than the right side. Assessment OT Clinical Summary Patient referred to OT with bilateral flexor tenosynovitis as well as middle finger PIP OA. He is s/p bilateral carpal tunnel and middle finger trigger finger release. He presents with residual stiffness, soreness, and weakness that limits return of hand use for gripping and lifting tasks. Skilled OT indicated to reduce pain and inflammation as well as improve functional ROM and strength of bilateral hands and wrists. Plan of Care Interventions Therapeutic Exercise,Manual Therapy,Therapeutic Activities,Ultrasound,Paraffin OT Services Indicated Yes Treatment Frequency and 2x/week for 8 visits Duration These treatments will address the objective and functional deficits as defined above. The patient will be advanced safely and appropriately in order for the patient to progress towards his/her prior level of function. Additional exerc
--- NOTE | 2023-10-04 11:06 | OPREHPOC ---
Outpatient Therapy Plan of Care This is a Multidisciplinary Plan of Care that may contain components documented by all disciplines (PT, OT, and ST.) OT Problem 1 OT Problem #1 Knowledge Deficit OT Goal 1 Goal 1. Patient to be independent with instructed materials. Target Visit 8 OT Problem 2 OT Problem #2 Pain OT Goal 1 Goal 1. Patient to report pain at worst 5/10 or less. Target Visit 8 OT Problem 3 OT Problem #3 Impaired Flexibility OT Goal 1 Goal 1. Patient to improve bilateral middle finger PIP extension lag to -5 or less. 2. Patient to be able to tolerate bilateral wrist prayer stretch x10 reps. Target Visit 8 OT Problem 4 OT Problem #4 Impaired Strength OT Goal 1 Goal 1. Patient to be able to tolerate head of housekeeping/pinch strengthening with yellow putty x5 minutes without pain. Target Visit 8
--- NOTE | 2023-11-06 12:32 | OTOPEVAL1 ---
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 He reports the left hand is making progress, having less pain, and no longer experiencing triggering on this side. He reports his right hand feels about the same as it was before starting therapy. He reports his hand would feel better after a therapy session, but the symptoms would return by that evening, particularly pain. He continues to wake up with the finger stuck in flexion and it takes a while to mobilize it straight. He recently tried going back to night splinting as he was waking up with a clenched fist and increased pain. (R) hand: - Full fist is WNL. - Hook fist is WNL. This improved from 0.5 cm gap for the right middle finger. -PIP extension improved from -30 to -20 degrees. -Institute Scientist strength measuring 47 lbs. today. (L) hand: - Full fist is WNL - Hook fist is WNL. This improved from 1.5 cm gap for the left middle finger. -PIP extension remained at -15 degrees. -Institute Scientist strength measuring 57 lbs. today. Pain Additional Pain Score Comments (R) hand: he reports when he wakes up in the morning his hand pain is up to 6-7/10. Throughout the day his pain is typically 2-3/10. (L) hand: pain is typically 0-1/10. No difference in the morning vs throughout the day. Assessment OT Clinical Summary Patient referred to OT with bilateral flexor tenosynovitis as well as middle finger PIP OA. He is s/p bilateral carpal tunnel and middle finger trigger finger release. 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 The right hand has demonstrated progress with therapy with improvements in functional ROM/flexibility, strength, and use. He continues to experience pain and stiffness daily upon waking up. He did receive another injection to the right A1 opal area today and he reports he is already feeling improved mobility. Continued skilled
--- NOTE | 2023-11-06 12:33 | OPREHPOC ---
Outpatient Therapy Plan of Care This is a Multidisciplinary Plan of Care that may contain components documented by all disciplines (PT, OT, and ST.) OT Problem 1 OT Problem #1 Knowledge Deficit OT Goal 1 Goal 1. Patient to be independent with instructed materials. ---OT POC UPDATE 11/06/23--- 1. Met, continue as HEP is progressed Target Visit 14 OT Problem 2 OT Problem #2 Pain OT Goal 1 Goal 1. Patient to report pain at worst 5/10 or less. ---OT POC UPDATE 11/06/23--- 1. Progressed, but not met, continue Target Visit 14 OT Problem 3 OT Problem #3 Impaired Flexibility OT Goal 1 Goal 1. Patient to improve bilateral middle finger PIP extension lag to -5 or less. 2. Patient to be able to tolerate bilateral wrist prayer stretch x10 reps. ---OT POC UPDATE 11/06/23--- 1. Progress with right hand, no changes on left, continue to improve flexibility 2. Not assessed today Target Visit 14 OT Problem 4 OT Problem #4 Impaired Strength OT Goal 1 Goal 1. Patient to be able to tolerate grip boss/pinch strengthening with yellow putty x5 minutes without pain. ---OT POC UPDATE 11/06/23--- 1. Met, upgrade goal: 1. Patient to increase (R) grip boss strength to 60 lbs . Target Visit 14
--- NOTE | 2023-12-03 10:13 | OTOPDC ---
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 He reports his fingers are no longer locking up. He reports his fingers feel a little stiff in the morning, but they are no longer stuck in flexion . Functionally he is reporting no limitations at this time. He states his strength feels better and he is compliant with his putty HEP. (R) hand: - Full fist is WNL. - Hook fist is WNL. -PIP extension improved from -20 to -15 degrees. -Backfiller strength measuring 66 lbs. today. Improved from 47 lbs. (L) hand: - Full fist is WNL - Hook fist is WNL. -PIP extension improved from -15 to -10 degrees. -Backfiller strength measuring 69 lbs. today. Improved from 57 lbs. Reported Pain Level Pain Score 0: Self Report Additional Pain Score Comments Patient reporting some residual PIP joint soreness . Reporting at worst the pain gets up to 1/10. Assessment OT Clinical Summary Patient referred to OT with bilateral flexor tenosynovitis as well as middle finger PIP OA. He is s/p bilateral carpal tunnel and middle finger trigger finger release. He has made good progress with bilateral hands. At this time ROM has returned to normal limits, pharmacy intake coordinator strength is WFL, and he is no longer experiencing pain with use. He is reporting no functional limitations. Reviewed HEP, recommending patient continue working on his HEP has he continues to have stiffness and soreness first thing in the morning. D/C OT with patient independent with all materials. Plan of Care OT Services Indicated No
== END 2023-12-03 11:44 | disposition home or self-care (01) ==
LOC: ANHOT 09:30
PROVIDERS: PCP Nurse Practitioner Adult Health; Visit Provider Physician Assistant Surgical
DX: M19.049 Primary osteoarthritis, unspecified hand (principal)
CPT/HCPCS: 97018; 97035; 97110; 97140; 97165

== ENCOUNTER 2024-01-10 12:12 | Outpatient (CLI) | payer MEDICARE, BC, SELFPAY ==
[2024-01-10 12:30] LABS: Basophils Percent Auto 0.5 % (0.2-1.2); Eosinophils Absolute Auto 0.2 K/mm3 (0-0.3); Eosinophils Percent Auto 2.7 % (0-4.4); Hematocrit 51.1 % (42.0-52.0); Hemoglobin 17.4 g/dL (14.0-18.0); Immature Granulocyte Absolute 0.02 K/mm3 (0.00-0.031); Immature Granulocyte Percent A 0.3 % (0-0.5); Lymphocytes Percent Auto 27.5 % (18.3-44.2); Mean Corpuscular HGB Conc 34.1 g/dl (32-36); Mean Corpuscular Hemoglobin 31.1 pg (26-34); Mean Corpuscular Volume 91.3 fl (80-100); Mean Platelet Volume 10.1 fl (7.4-10.4); Monocytes Absolute Auto 0.5 K/mm3 (0.1-0.6); Monocytes Percent Auto 6.8 % (2.6-8.5); Neutrophils Absolute Auto 4.8 K/mm3 (1.3-6.7); Neutrophils Percent Auto 62.2 % (45.5-73.1); Platelet Count Result 211 k/mm3 (150-375); Red Cell Distribution Width 12.4 % (11.5-14.5); White Blood Count 7.6 K/mm3 (4.5-10.0)
[2024-01-10 13:16] LABS: Alanine Aminotransferase 25 U/L (6-50); Albumin Level 4.2 g/dL (3.5-5.1); Alkaline Phosphatase 86 U/L (38-126); Anion Gap 8 mmol/L (4-12); Aspartate Amino Transferase 28 U/L (17-59); Bilirubin,Total 1.7 mg/dL (0.2-1.3); Blood Urea Nitrogen 18 mg/dL (9-20); Calcium 8.7 mg/dL (8.4-10.2); Carbon Dioxide 29 mmol/L (22-30); Chloride 101 mmol/L (98-107); Cholesterol 117 mg/dL (0-200); Estimated Glomerular Filt Rate > 60; Glucose 94 mg/dL (65-110); HDL Direct 37 mg/dL; Potassium 4.4 mmol/L (3.4-5.0); Sodium 138 mmol/L (137-145); Triglycerides 110 mg/dL (<150)
[2024-01-10 13:27] LABS: LDL Cholesterol Direct 64 mg/dL
[2024-01-10 14:41] LABS: Hepatitis C Virus Antibody Negative (Negative)
[2024-01-10 15:17] LABS: Hemoglobin A1C 5.6 % (<5.7)
== END 2024-01-10 12:13 | disposition home or self-care (01) ==
LOC: ANHLAB 12:15
PROVIDERS: PCP Nurse Practitioner Adult Health; Visit Provider Nurse Practitioner Adult Health
DX: E78.5 Hyperlipidemia, unspecified (principal); E11.9 Type 2 diabetes mellitus without complications; Z11.59 Encounter for screening for other viral diseases
CPT/HCPCS: 36415; 80053; 80061; 83036; 85025; 86803

== ENCOUNTER 2024-03-04 14:08 | Outpatient (CLI) | payer MEDICARE, BC, SELFPAY ==
--- NOTE | ~2024-03-04 | XR_ITS ---
Left foot Technique: AP, oblique, and lateral views were obtained. Clinical History: Fourth digit pain Findings: No acute fracture or dislocation is seen. Osseous alignment is anatomic. Joint spaces are p reserved without erosive or degenerative change. Soft tissues are unremarkable. Impression: Unremarkable left foot radiographs. Reviewed, dictated and finalized at location . Impression: Unremarkable left foot radiographs.
== END 2024-03-04 14:09 | disposition home or self-care (01) ==
LOC: ANHBWCIMG 14:10
PROVIDERS: PCP Nurse Practitioner Adult Health; Visit Provider Nurse Practitioner Adult Health
DX: M79.672 Pain in left foot (principal)
CPT/HCPCS: 73630

== ENCOUNTER 2024-04-09 11:48 | Outpatient (CLI) | payer MEDICARE, BC, SELFPAY ==
--- NOTE | ~2024-04-09 | XR_ITS ---
2 VIEWS SOFT TISSUES NECK Ordering provider: Destiny Magana APRN History: . R13.10 - Dysphagia, unspecified . Comparison: None. FINDINGS: SOFT TISSUES: No prevertebral soft tissue swelling. The epiglottis is normal. The pharynx and trach ea appear patent. VERTEBRAL BODIES: Fusion is seen at the level of C4, C5, C6 and C7. Postoperative changes are also se en. Normal height and alignment. No acute osseous findings. Degenerative disc disease at the level of C3-C4. DISK SPACES: Normal. IMPRESSION: No definite abnormality seen in the soft tissues.. Reviewed, dictated and finalized at location A. DEALER
== END 2024-04-09 11:49 | disposition home or self-care (01) ==
PROVIDERS: PCP Nurse Practitioner Adult Health; Visit Provider Nurse Practitioner Adult Health
DX: R13.10 Dysphagia, unspecified (principal)
CPT/HCPCS: 70360

== ENCOUNTER 2025-04-07 15:01 | Outpatient (CLI) | payer MEDICARE, BC, SELFPAY ==
--- NOTE | ~2025-04-07 | CT_ITS ---
EXAMINATION: CTA neck DATE: 04/07/2025 15:37 INDICATION: Occlusion and stenosis of unspecified carotid artery. TECHNIQUE: Computed tomographic angiography (CTA) of the neck was performed with 100 mL Omnipaque-350 intravenous contrast. Automated exposure control and iterative reconstruction technique were employed. The dose-length product was 553.13 mGy-cm. Maximum intensity projection 3D-reconstructions were created by the technologist on a separate workstation. COMPARISON: None. FINDINGS: There are no pathologically enlarged lymph nodes. There is no significant stenosis of the vertebral arteries. There is plaque in the proximal internal carotid arteries. There is 50% stenosis of the proximal right internal carotid artery relative to normal distal artery lumen diameter (NASCET criteria). There is 0% stenosis of the proximal left internal carotid artery relative to normal distal artery lumen diameter. There are likely changes of ocular lens replacement surgeries. There is mild mucosal thickening in the paranasal sinuses. There are surgical changes of the paranasal sinuses. There is severe cervical spondylosis. There are changes of anterior fusion procedure from C4 to C7 with anterior plate and screws. IMPRESSION: 1. 50% stenosis of the proximal right internal carotid artery relative to normal distal artery lumen diameter (NASCET criteria). 2. 0% stenosis of the proximal left internal carotid artery relative to normal distal artery lumen diameter. Reviewed, dictated and finalized at location E. P FORKLIFT OPERATOR IMPRESSION: 1. 50% stenosis of the proximal right internal carotid artery relative to kenneth l distal artery lumen diameter (NASCET criteria). 2. 0% stenosis of the proximal left internal carotid artery relative to normal distal artery lumen diameter.
[2025-04-07 15:38] LABS: Estimated Glomerular Filt Rate > 60
--- OUTSIDE RECORDS SUMMARY | 2025-04-07 16:22 | XMS_ITS | Encounter Summary ---
Author Organization [facility] Address [address] [place] [address] Care Team Providers Care Rougher For Cement Name Role Phone Shilpa Escalona MD Unavailable [phone] Jovana Castañeda MD Primary Care Provider [phone] Jluis Singh MD Unavailable [phone] Destiny Magana NP Primary Care Provider [phone] Olive Lucia APRN Primary Care Provider [phone] Destiny Magana NP Primary Care Provider [phone] Encounter Details Date Type Department Care Team (Late st Contact Info) Description 03/09/2016 Abstract [facility] AT [address] [address] Mague Dasilva MA Social History Tobacco Use Types Packs/Day Years Used Date Smoking Tobacco: Former Cigarettes Smokeless Tobacco: Never Alcohol Use Standard Drinks/Week Comments Yes 0 (1 standard drink = 0.6 oz pur e alcohol) Very little Sex and Gender Information Value Date Recorded Sex Assigned at Male 07/07/2024 10:19 AM BLEACH TESTER Legal Sex Male 11:59 PM CDT Gender Identity Male 12/17/2024 10:45 PM CDT Sexual Orientation Straight 12/17/2024 10 :45 PM CDT Occupation Industry Job Start Date Job End Date Disabled Not on file Not on file Not on file documented as of this encounter Plan of Treatment Upcoming Encounters Date Type Department Care Team (Late st Contact Info) Description 06/29/2025 11:30 AM BLEACH TESTER Office Visit [facility] [address] [place] [phone] Crista Kim, GIA [address] [facility] [address] [place] [address] documented as of this encounter Procedures Procedure Name Priority Date/Time Associated Diagnosis Comments COMPREHENSIVE METABOLIC PANEL Routine 11/16/2016 LIPID PANEL Routine 11/16/2016 HEMOGLOBIN, GLYCOSYLATED Routine 11/16/2016 CBC (OUTSIDE LAB) Routine 07/20/2016 VITAMIN B-12 Routine 07/20/2016 PROSTATE SPECIFIC ANTIGEN,TOTAL Routine 07/20/2016 COMPREHENSIVE METABOLIC PANEL Routine 03/01/2016 LIPID PANEL Routine 03/01/2016 THYROXINE, FREE (FT4) Routine 03/01/2016 THYROID STIM HORMONE TSH Routine 03/01/2016 documented in this encounter Results * COMPREHENSIVE METABOLIC PANEL (11/16/2016) SODIUM S/P/B 140 POTASSIUM S/P/B 3.9 CO2 26 CHLORIDE S/P/B 106 GLUCOSE 110 CALCIUM S/P/B 9.1 BUN 12 CREATININE S/P/B 0.84 0.7 - 1.3 EGFR NON-AFR. AMER. >60 <=90 ALKALINE PHOSPHATASE S/P/B 89 ALT 31 AST 21 BILIRUBIN TOTAL S/P/B 1.2 ALBUMIN S/P/B 3.9 3.5 - 5.0 TOTAL PROTEIN S/P/B 6.3 11/16/2016 us Doc [facility] Final Result * LIPID PANEL (11/16/2016) CHOLESTEROL 103 HDL 35 TRIGLYCERIDES 78 LDL (CALCULATED) 52.4 11/16/2016 us Doc [facility] LABORAT[facility] Final Result * HEMOGLOBIN, GLYCOSYLATED (11/16/2016) Pathologist [facility] HGB A1C 5.5 11/16/2016 us Doc [facility] LABORATORY Final Result * VITAMIN B-12 (07/20/2016) Pathologist [facility] VITAMIN B12 S/P/B 315 07/20/2016 us Doc [facility] LABORAT[facility] Final Result * PROSTATE SPECIFIC ANTIGEN,TOTAL (07/20/2016) Pathologist [facility] PSA 0.722 07/20/2016 us Doc [facility] LABORATORY Final Result * CBC (OUTSIDE LAB) (07/20/2016) Pathologist [facility] WBC 8.3 HGB 17.1 HCT 49.8 PLT 228 07/20/2016 us Doc [facility] Abstract LAB-OUTSIDE/ABSTRACTED Final Result * THYROID STIM HORMONE, TSH (03/01/2016) TSH 1.29 03/01/2016 us Doc [facility] LABORATORY Final Result * THYROXINE, FREE (FT4) (03/01/2016) Pathologist [facility] FREE T4 0.82 03/01/2016 us Doc [facility] LAB[facility]ATORY Final Result * LIPID PANEL (03/01/2016) CHOLESTEROL 105 HDL 36 TRIGLYCERIDES 59 LDL (CALCULATED) 57.2 03/01/2016 us Doc [facility] Final Result * COMPREHENSIVE METABOLIC PANEL (03/01/2016) SODIUM S/P/B 140 POTASSIUM S/P/B 4.3 CO2 27 CHLORIDE S/P/B 108 GLUCOSE 186 CALCIUM S/P/B 8.8 BUN 14 CREATININE S/P/B 0.92 EGFR NON-AFR. AMER. >60 ALKALINE PHOSPHATASE S/P/B 83 ALT 25 AST 18 BILIRUBIN TOTAL S/P/B 0.5 ALBUMIN S/P/B 3.8 3.5 - 5.0 TOTAL PROTEIN S/P/B 6.0 03/01/2016 us Doc [facility] Abstract LABORATORY Final Result documented in this encounter Visit Diagnoses Not on filedocumented in this encounter Additional Health Concerns Infection Onset Date Last Indicated Resolved Time MRSA Comment:12/17/20 +MRSA Nasal 12/18/2020 12/18/2020 COVID-19 Rule Out 09/15/2022 09/15/2022 09/15/2022 10:48 AM CDT documented as of this encounter Care Teams Rougher For Cement Relationship Specialty Start Date End Date Jovana Castañeda MD [address], [place] [address] PCP - General FAMILY PRACTICE 11/05/15 09/03/18 Destiny Magana NP [address] [place] [address] PCP - General NURSE PRACTITIONER 09/04/18 08/09/22 Olive Lucia APRN [address] [address] PCP - General NURSE PRACTITIONER 08/10/22 03/03/23 Destiny Magana NP [address] [place] [address] PCP - General 03/04/23 Shilpa Escalona MD [facility]. [facility] [address] [place] [address] Peripheral Interventionalist CARDIOVASCULAR DISEASE 11/05/15 Jluis Singh MD Three [facility]. [facility] [address] [place] [address] [employer] Newspaper Columnist CARDIOVASCULAR DISEASE 10/06/15 documented as of this encounter
--- OUTSIDE RECORDS SUMMARY | 2025-04-07 16:22 | XMS_ITS | Encounter Summary ---
Author Organization [facility] Address [address] [place] [address] Care Team Providers Care Rn L And D Name Role Phone Shilpa Escalona MD Unavailable [phone] Jluis Singh MD Unavailable [phone] Destiny Magana NP Primary Care Provider [phone] Oilve Lucia APRN Primary Care Provider [phone] Destiny Magana NP Primary Care Provider [phone] Encounter Details Date Type Department Care Team (Late st Contact Info) Description 04/17/2022 Hospital Orders Only [facility] THREE [facility], [address] [place] [address] Shilpa Escalona MD Three [facility]. [address] [place], [place] [id number] Social History Tobacco Use Types Packs/Day Years Used Date Smoking Tobacco: Former Cigarettes Electronic Cigarettes Smokeless Tobacco: Never Comments:quit 04/25/15, curr ent e-cig Alcohol Use Standard Drinks/Week Comments Yes 0 (1 standard drink = 0.6 oz pur e alcohol) Very little PHQ-2 Answer Date Recorded PHQ-2 Score - If the patient scores above 3, please move on to questions 3-9 2 09/21/2021 Sex and Gender Information Value Date Recorded Sex Assigned at Male 07/07/2024 10:19 AM AND DRYING SUPERVISOR COOKING CASING Legal Sex Male 11:59 PM CDT Gender Identity Male 12/17/2024 10:45 PM CDT Sexual Orientation Straight 12/17/2024 10 :45 PM CDT Occupation Industry Job Start Date Job End Date Not on file Not on file Not on file Not on file COVID-19 Exposure Response Date Recorded In the last 10 days, have yo u been in contact with someone who was confirmed or suspected to have Coronavirus/COVID-19? No / Unsure 04/11/2022 9:06 AM AND DRYING SUPERVISOR COOKING CASING documented as of this encounter Plan of Treatment Upcoming Encounters Date Type Department Care Team (Late st Contact Info) Description 06/29/2025 11:30 AM AND DRYING SUPERVISOR COOKING CASING [facility] [address] [place] [phone] Crista Kim FNP [address] [place] [address] documented as of this encounter Visit Diagnoses Not on filedocumented in this encounter Additional Health Concerns Infection Onset Date Last Indicated Resolved Time MRSA Comment:12/17/20 +MRSA Nasal 12/18/2020 12/18/2020 COVID-19 Rule Out 09/15/2022 09/15/2022 09/15/2022 10:48 AM CDT documented as of this encounter Care Teams Rn L And D Relationship Specialty Start Date End Date Destiny Magana NP [address] [place] [address] PCP - General NURSE PRACTITIONER 09/04/18 08/09/22 Olive Lucia APRN [address] [address] [facility] [address] [place] [address] PCP - General NURSE PRACTITIONER 08/10/22 03/03/23 Destiny Magana NP [address] [place] [address] PCP - General 03/04/23 Shilpa Escalona MD [address] [facility] [address] [place] [address] Peripheral Interventionalist CARDIOVASCULAR DISEASE 11/05/15 Jluis Singh MD [address] [facility] [address] [place] [address] [place] Drawer Upfitter CARDIOVASCULAR DISEASE 10/06/15 documented as of this encounter
--- OUTSIDE RECORDS SUMMARY | 2025-04-07 16:22 | XMS_ITS | Encounter Summary ---
Author Organization [facility] Address [address] [place] [address] Care Team Providers Care Data Report Analyst Name Role Phone Shilpa Escalona MD Unavailable [phone] Jluis Singh MD Unavailable [phone] Olive Lucia APRN Primary Care Provider [phone] Destiny Magana NP Primary Care Provider [phone] Encounter Details Date Type Department Care Team (Late st Contact Info) Description 12/29/2022 [employer] Message Enc [facility] Medical Group Family & Internal Medicine [address] [address] Roberta, [facility] Provider MRI Social History Tobacco Use Types Packs/Day Years Used Date Smoking Tobacco: Former Cigarettes Electronic Cigarettes Smokeless Tobacco: Never Comments:quit 04/25/15, curr ent e-cig with nicotine. Alcohol Use Standard Drinks/Week Comments Yes 0 (1 standard drink = 0.6 oz pur e alcohol) Very little PHQ-2 Answer Date Recorded Patient Health Questionnaire-2 Score 3 09/15/2022 Sex and Gender Information Value Date Recorded Sex Assigned at Male 07/07/2024 10:19 AM DOORS PREFITTER Legal Sex Male 11:59 PM CDT Gender [...] st Contact Info) Description 06/29/2025 11:30 AM DOORS PREFITTER Office Visit [facility] [address] [place] [address] Crista Kim FNP 3 [facility] [address] [place] [address] documented as of this encounter Visit Diagnoses Not on filedocumented in this encounter Additional Health Concerns Infection Onset Date Last Indicated Resolved Time MRSA Comment:12/17/20 +MRSA Nasal 12/18/2020 12/18/2020 Assessment Noted Time PHQ-9 Depression Total Score: 9 09/16/19 10:14 AM CDT documented as of this encounter Care Teams Data Report Analyst Relationship Specialty Start Date End Date Olive Lucia APRN [address] [facility] [address] [place] [address] PCP - General NURSE PRACTITIONER 08/10/22 03/03/23 Destiny Magana NP [address] [place] [address] PCP - General 03/04/23 Shilpa Escalona MD [facility]. [address] [place], [place] [id number] Peripheral Interventionalist CARDIOVASCULAR DISEASE 11/05/15 Jluis Singh MD [facility]. [address] [place], [place] [id number] [place] [employer] Riveting Machine Operator CARDIOVASCULAR DISEASE 10/06/15 documented as of this encounter
--- OUTSIDE RECORDS SUMMARY | 2025-04-07 16:22 | XMS_ITS | Clinical Summary ---
Author Organization [facility] [address] Address [address] [place] [address] Care Team Providers Care Line Supply Name Role Phone Destiny Magana NP Primary Care Provider [phone] Jluis Singh MD Unavailable [phone] Allergies Active Allergy Reactions Criticality Noted Date Comments Codeine Other (See comments) 07/20/2020 Levofloxacin Nausea & Vomiting Low 05/03/2021 Medications ALPRAZolam (XANAX) 0.25 mg tabletIndications: anxiety Take 0.25 mg by mouth 3 (three) times a day as needed 1 08/21/19 19 Active atorvastatin (LIPITOR) 40 mg tabletIndications: hyperlipidemia Take 40 mg by mouth every evening 4 09/18/19 19 Active escitalopram (LEXAPRO) 10 mg tabletIndications: Anxiety with Depression Take 10 mg by mouth nightly 3 09/09/19 19 Active metoprolol XL (TOPROL-XL) 25 mg 24 hr tabletIndications: hypertension Take 1 tablet (25 mg total) by mouth wax machine operator before breakfast 30 tablet 10/26/19 19 Active Additional Information Patient taking differently:25 mg oralDaily, Indications: hypertension, Informant: Self, Reported on 11/13/2019 acetaminophen (TYLENOL) 500 mg tabletIndications: Pain Take 1,000 mg by mouth every 6 (six) hours as needed for pain Active fluticasone propionate (FLONASE) 50 mcg/actuation nasal sprayIndications:A llergic Rhinitis Administer 2 sprays into each nostril every morning Active aspirin 81 mg enteric coated tablet aspirin 81 mg tablet,delayed release Active clopidogrel (PLAVIX) 75 mg tablet TAKE 1 TABLET BY MOUTH EVERY DAY 11/26/19 19 Active gabapentin (NEURONTIN) 300 mg capsuleIndications :Neuropathic Pain Take 2 capsules (600 mg total) by mouth 3 (three) times a day 180 capsule 02/28/20 19 Active albuterol HFA (PROVENTIL HFA,VENTOLIN HFA,PROAIR HFA) 90 mcg/actuation inhaler 04/10/20 21 Active cholecalciferol (VITAMIN D-3) 25 mcg (1,000 unit) tablet Take 2,000 Units by mouth daily Active desloratadine (CLARINEX REDITAB) 5 mg disintegrating tablet Take 1 tablet by mouth daily Active influenza quadrivalent [id number] (Fluad Quad 2019-,65y up,,PF,) 60 mcg (15 mcg x 4)/0.5 mL syringe Fluad Quad (65yr up)(PF) 60 mcg (15 mcg x 4)/0.5mL IM syringe PHARMACY ADMINISTERED Active nitroglycerin (NITROSTAT) 0.[address] 1 TABLET UNDER TONGUE NEEDED FOR CHEST PAIN, AFTER THIRD DOSE CALL 911 07/31/19 20 Active traMADoL (ULTRAM) 50 mg tabletIndications: Fusion of spine of lumbar region,Chronic radicular lumbar pain TAKE 1-2 TABLETS BY MOUTH 3 TIMES A DAY NEEDED FOR PAIN 90 tablet 05/18/19 22 Active baclofen (LIORESAL) 10 mg tabletIndications: Fusion of spine of lumbar region,Muscle spasm TAKE 1 TABLET BY MOUTH EVERY 8 HOURS 90 tablet 2 10/06/19 22 Active pregabalin (LYRICA) 25 mg capsuleIndications :Fusion of spine of lumbar region,Muscle spasm TAKE 1 CAPSULE BY MOUTH TWICE A DAY 60 capsule 02/02/20 22 Active omeprazole (PriLOSEC) 40 mg capsule Take 1 capsule (40 mg total) by mouth daily 12/24/19 24 Active prednisoLONE acetate (PRED FORTE) 1 % ophthalmic suspension INSTILL 1 DROP BOTH EYES TWICE A DAY FOR 2 WEEKS AND STOP 03/16/20 25 Active tamsulosin (FLOMAX) 0.4 mg extended release capsule Take 1 capsule (0.4 mg total) by mouth daily 12/19/19 25 Active Active Problems Problem Noted Date Diagnosed Date Abdominal pain 03/27/2025 Arthritis of hand 03/27/2025 Bilateral carpal tunnel syndrome 03/27/2025 Dysphagia 03/27/2025 Dyspnea 03/27/2025 Early satiety 03/27/2025 Feeling of foreign body in throat 03/27/2025 Foot pain, left 03/27/2025 GERD (gastroesophageal reflux disease) Hyperlipidemia 03/27/2025 Itching of ear 03/27/2025 Pain 03/27/2025 Pain of left middle finger 03/27/2025 Paresthesia of bilateral legs 03/27/2025 Seborrheic keratoses, inflamed 03/27/2025 Skin lesion 03/27/2025 Ulnar neuropathy at elbow 03/27/2025 Weight loss 03/27/2025 Neck pain 03/27/2025 Anxiety and depression 03/27/2025 Hypertension 03/27/2025 Neuropathic spondylopathy of lumbar spine 2024 Stable angina pectoris 03/27/2025 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 Abnormality of gait and mobility 11/05/2022 Arthritis 11/05/2022 Locking finger joint 11/05/2022 Neuropathy 11/05/2022 Numbness and tingling in both hands 11/05/2022 Shortness of breath 08/24/2022 Severe episode of recurrent major depressive disorder, without psychotic features 08/24/2022 Tinea pedis 12/04/2018 Sinus tarsi syndrome 12/04/2018 Onychomycosis 12/04/2018 Chronic neck pain 12/04/2018 Chronic back pain 12/04/2018 Spinal stenosis, lumbar judit on, with neurogenic claudication 11/19/2018 Overview (11/19/2018): Added automatically from request for surgery [id number] Adjacent segment disease with spinal stenosis Overview (10/09/2018): Added automatically from request for surgery [id number] Lumbar radiculopathy 10/09/2018 Overview (10/09/2018): Added automatically from request for surgery [id number] Preoperative clearance 10/08/2018 Non-rheumatic mitral regurgitation 10/08/2018 Anxiety 10/03/2018 Atherosclerotic heart diseas e of [place] coronary artery without angina pectoris 10/03/2018 Low back pain 10/03/2018 Depressive disorder 10/03/2018 Essential hypertension 10/03/2018 Hyperglycemia 10/03/2018 Ischemic cardiomyopathy 10/03/2018 Pure hypercholesterolemia 10/03/2018 Seasonal allergies 10/03/2018 Shoulder joint painful on movement 10/03/2018 Stable angina 10/03/2018 Ganglion cyst of left foot 10/02/2018 Encounters Date Type Department Care Team Description 03/27/2025 11:00 AM SLOT EDITOR Therapy [facility] [address] [place] [address] [place] [address] Natalya Kaur SLP Leukoplakia of vocal cords (Primary Dx); LPRD (laryngopharyngeal reflux disease) 03/27/2025 11:00 AM SLOT EDITOR Office Visit [facility] Medicine ENT [address] [place] [address] [place] [address] Pako Packer MD Leukoplakia of vocal cords (Primary Dx) from Last 3 Months Immunizations Immunization Administration Dates Next Due Influenza, Trivalent, High D ose, Split, Preservative Free, Intramuscular 03/09/2018 Tdap 04/18/2013 Surgical History Surgery Date Site/Laterality Comments CARDIAC STENT PLACEMENT CHOLECYSTECTOMY SINUS SURGERY BACK SURGERY L4-5 fusion FL UPPER GI AIR CONTRAST W KUB 11/20/2018 Left CARDIAC STENT PLACEMENT FL UPPER GI AIR CONTRAST W KUB 01/10/2019 Left FL UPPER GI AIR CONTRAST W KUB 06/12/2019 Left Medical History Medical History Date Comments CHF (congestive heart failure) (HCC) Hypertension CAD (coronary artery disease) Dyslipidemia Myocardial infarction (HCC) 04/2015 Awareness under anesthesia patie nt reports during 1st back surgery in Family History Medical History Relation Name Comments Heart attack Brother Heart attack Father Stroke Father Anesthesia problems Mother slow to wake Relation Name Status Comments Brother Father Mother Social History Tobacco Use Types Packs/Day Years Used Date Smoking Tobacco: Former Cigarettes 2 52 1 963 - 2015 Smokeless Tobacco: Former Alcohol Use Standard Drinks/Week Comments Yes 0 (1 standard drink = 0.6 oz pur e alcohol) RARE Sex and Gender Information Value Date Recorded Sex Assigned at Not on file Legal Sex Male 10:38 PM SLOT EDITOR Gender Identity Not on file Sexual Orientation Not on file Occupation Industry Job Start Date Job End Date Retired Not on file Not on file Not on file Last Filed Vital Signs Vital Sign Reading Time Taken Comments Blood Pressure 156/82 06/12/2019 2:14 PM SLOT EDITOR Pulse 81 06/12/2019 2:14 PM SLOT EDITOR Temperature 36.7 C (98.1 F) 11/28/2018 3:15 PM CDT Respiratory Rate 18 06/12/2019 2:14 PM SLOT EDITOR Oxygen Saturation 97% 06/12/2019 2:14 PM SLOT EDITOR Inhaled Oxygen Concentration - - Weight 80.8 kg (178 lb 1.6 oz) 03/27/2025 10:51 AM SLOT EDITOR Height 172.7 cm (5' 8) 03/27/2025 10:51 AM SLOT EDITOR Body Mass Index 27.08 03/27/2025 10:51 AM SLOT EDITOR Plan of Treatment Upcoming Encounters Date Type Department Care Team (Latest Contact Info) Description 05/05/2025 10:12 AM SLOT EDITOR Hospital Encounter [facility] Operating [facility] [address] [place] [address] Pako Packer MD [address] [address] 05/05/2025 10:12 AM SLOT EDITOR - 05/05/2025 11:27 AM SLOT EDITOR Surgery [facility] [address] [place] [address] Pako Packer MD [address] [address] LARYNGOSCOPY W EXCISION LESION Scheduled Procedures Name Priority Associated Diagnoses Date/Ti me LARYNGOSCOPY PROCEDURE Leukoplakia of vocal cords 05/05/2025 10:12 AM SLOT EDITOR LASER KTP Leukoplakia of vocal cords 05/05/2025 10:12 AM SLOT EDITOR Health Maintenance Due Date Last Done Comments Colon Cancer Screening-Colonoscopy 1950 Depression Screening 1950 Fall Risk Assessment 1950 Hepatitis C Screening 1950 Hepatitis B Screening 1970 Lung Cancer Screening 2002 Zoster Vaccine (1 of 2) 2002 Well Visit 65+ 2017 DTaP/Tdap/Td Vaccine (2 - Td or Tdap) 04/18/2023 04/18/2013 Influenza Vaccine (#1) 2025 4, 04/10/2023, 04/11/2022, Additional history exists Pneumococcal vaccine 65+ (3 of 3 - PCV20 or PCV21) 04/19/2026 04/19/2021, 05/22/2019, 07/22/2015 Abdominal Aortic Aneurysm (A AA) Screen Completed 12/17/2024 Goals Goal Patient Goal Type Associated Problems Recent Progress Patient-Stated? Author Autogenerat ed Goal Care Plan Autogenerated Problem No Lukas[employer] Medical Devices Implanted Type Area Animal Cruelty Investigation Supervisor Device Identifier Shelf Expiration Date Model / Serial / Lot Xcience Alpine Implanted:Qty: 2 on 04/25/2015 by Shilpa Escalona MD Stent [facility] [facility] Description:2 STENTS Alpine Xcience 1.5/3 T Normal Mode 15 Minutes of Continuous Scanning Cervical Fusion Spine Cervical Filler Bone Void Acupac Advanced Frozen 10cc - [id number] - [id number] Implanted:Qty: 1 on 10/22/2018 by Reuben Chapman MD at [facility] N/A: Spine Lumbar [employer] 07/12/2023 [id number] / / Medtronic Sofamor Danek [id number] Mastergraft Matrix Block Extension Void Filler Substitute 10ml - [id number] Implanted:Qty: 1 on 10/22/2018 by Reuben Chapman MD at [facility] N/A: Spine Lumbar Medtronic Sofamor Danek 03/06/2021 [id number] / / [id number] Medtronic Sofamor Danek [id number] Infuse 18mm 26mm Absorbable Sponge Sterile Water Syringe Needle - [id number] Implanted:Qty: 1 on 10/22/2018 by Reuben Chapman MD at [facility] N/A: Spine Lumbar Medtronic Sofamor Danek 01/05/2020 [id number] / / [id number] Medtronic Sofamor Danek [id number] Solera Cd Horizon 6.5mm 55mm Multiaxial Spine Screw Bone Cocr - [id number] Implanted:Qty: 4 on 10/22/2018 by Reuben Chapman MD at [facility] N/A: Spine Lumbar Medtronic Sofamor Danek [id number] / / Medtronic Sofamor Danek [id number] Cd Horizon Break Off Spinal Screw Set Titanium Nonsterile 5.5 Mm - [id number] Implanted:Qty: 4 on 10/22/2018 by Reuben Chapman MD at [facility] N/A: Spine Lumbar Medtronic Sofamor Danek [id number] / / Medtronic Sofamor Danek [id number] Cd Horizon 5.5mm 45mm Curve Richard Spinal Titanium Nonsterile - [id number] Implanted:Qty: 2 on 10/22/2018 by Reuben Chapman MD at [facility] N/A: Spine Lumbar Medtronic Sofamor Danek [id number] / / Medtronic Sofamor Danek [id number] Cd Horizon Break Off Spinal Screw Set Titanium Nonsterile 5.5 Mm - [id number] Implanted:Qty: 2 on 11/26/2018 by Reuben Chapman MD at [facility] Medtronic Inc [id number] / / Additional Health Concerns Active Problems Noted Date Diagnosed Date Autogenerated Problem 03/27/2025 Insurance MEDICARE Member Subscriber Plan / Payer (Ef fective 1994-Present) Name:Madhu Mota V Member ID:[id number] Relation to Subscriber:Self Name:Madhu Mota V Subscriber ID:[id number] Payer ID:[id number] Group ID:Not on file Type:MEDICARE TRADITIONAL Address: [address] [place] [phone] [facility] MEDICARE [facility] Advance Directives For more information, please contact: [phone] * Full Code (Latest Code Status on File) Date Activated Date Inactivated Comments 11/26/2018 3:38 PM 11/28/2018 9:52 PM * Full Code Date Activated Date Inactivated Comments 10/22/2018 9:26 PM 10/25/2018 4:46 PM Care Teams Line Supply Relationship Specialty Start Date End Date Destiny Magana NP PCP - General Nurse Practitioner 10/03/18 Jluis Singh MD Referring Physician Internal Medicine 10/04/18
--- OUTSIDE RECORDS SUMMARY | 2025-04-07 16:22 | XMS_ITS | Encounter Summary ---
Author Organization [facility] Address [address] [place] [address] Care Team Providers Care Ems Driver Name Role Phone Shilpa Escalona MD Unavailable [phone] Jluis Singh MD Unavailable [phone] Destiny Magana NP Primary Care Provider [phone] Encounter Details Date Type Department Care Team (Late Contact Info) Description 05/15/2023 [employer] Message Enc [facility] Medical Group Family & Internal Medicine [address] [address] Roberta, [facility] Provider Due for a routine follow up appt Social History Tobacco Use Types Packs/Day Years [...] Sex Assigned at Male 07/07/2024 10:19 AM FISH PEDDLER Legal Sex Male 11:59 PM CDT Gender Identity Male 12/17/2024 10:45 PM CDT Sexual Orientation Straight 12/17/2024 10 :45 PM CDT Occupation Industry Job Start Date Job End Date Not on file Not on file Not on file Not on file documented as of this encounter Plan of Treatment Upcoming Encounters Date Type Department Care Team (Late Contact Info) Description 06/29/2025 11:30 AM FISH PEDDLER [facility] [address] [place] [address] Crista Kim FNP 3 [facility] [address] [place] [address] documented as of this encounter Visit Diagnoses Not on filedocumented in this encounter Additional Health Concerns Infection Onset Date Last Indicated Resolved Time MRSA Comment:12/17/20 +MRSA Nasal 12/18/2020 12/18/2020 Assessment Noted Time PHQ-9 Depression Total Score: 9 09/16/19 10:14 AM CDT documented as of this encounter Care Teams Ems Driver Relationship Specialty Start Date End Date Destiny Magana NP [address] [place] [address] PCP - General 03/04/23 Shilpa Escalona MD [facility]. [address] [place], [place] [id number] Peripheral Interventionalist CARDIOVASCULAR DISEASE 11/05/15 Jluis Singh MD [facility]. [address] [place], [place] [id number] [place] Diesel Engineer CARDIOVASCULAR DISEASE 10/06/15 documented as of this encounter
--- OUTSIDE RECORDS SUMMARY | 2025-04-07 16:22 | XMS_ITS | Encounter Summary ---
Author Organization [facility] Address [address] [place] [address] Care Team Providers Care Engineer Technician Name Role Phone Shilpa Escalona MD Unavailable [phone] Jovana Castañeda MD Primary Care Provider [phone] Jluis Singh MD Unavailable [phone] Jovana Castañeda MD Primary Care Provider [phone] Jovana Castañeda MD Primary Care Provider [phone] Jovana Castañeda MD Primary Care Provider [phone] Luz Olson MD Primary Care Provider Unavailable Jovana Castañeda MD Primary Care Provider [phone] Destiny Magana NP Primary Care Provider [phone] Olive Lucia APRN Primary Care Provider + [phone] Destiny Magana AIR TRAFFIC CONTROL MANAGER Primary Care Provider [phone] Encounter Details Date Type Department Care Team (Late st Contact Info) Description 04/22/2015 Abstract [facility] CONVERSION [address] [place], [place] [id number] Md Generic MD Elizabeth Social History Tobacco Use Types Packs/Day Years Used Date Smoking Tobacco: Never Assessed Sex and Gender Information Value Date Recorded Sex Assigned at Male 07/07/2024 10:19 AM REDUCING SALON ATTENDANT Legal Sex Male 11:59 PM CDT Gender Identity Male 12/17/2024 10:45 PM CDT Sexual Orientation Straight 12/17/2024 10 :45 PM CDT documented as of this encounter Plan of Treatment Upcoming Encounters Date Type Department Care Team (Late st Contact Info) Description 06/29/2025 11:30 AM REDUCING SALON ATTENDANT Office Visit [facility] [address] [place] [address] Crista Kim, BOARD CERTIFIED ARTS THERAPIST 3 [facility] [address] [place] [address] documented as of this encounter Visit Diagnoses Not on filedocumented in this encounter Additional Health Concerns Infection Onset Date Last Indicated Resolved Time MRSA Comment:12/17/20 +MRSA Nasal 12/18/2020 12/18/2020 COVID-19 Rule Out 09/15/2022 09/15/2022 09/15/2022 10:48 AM CDT documented as of this encounter Care Teams Engineer Technician Relationship Specialty Start Date End Date Jovana Castañeda MD [address] [facility] [place] [address] PCP - General FAMILY PRACTICE 11/05/15 09/03/18 Jovana Castañeda MD [address] [facility] [place] [address] PCP - General 07/23/15 11/04/15 Jovana Castañeda MD [address] [facility] [place] [address] PCP - General 06/28/15 07/22/15 Jovana Castañeda MD [address] [facility] [place] [address] PCP - General 05/03/15 06/27/15 Luz Olson MD PCP - General 04/25/15 05/02/15 Jovana Castañeda MD [address] [place] [address] PCP - General 03/05/13 04/24/15 Destiny Magana, GANGA [facility] [place] [address] PCP - General NURSE PRACTITIONER 09/04/18 08/09/22 Olive Lucia APRN [address] [address] PCP - General NURSE PRACTITIONER 08/10/22 03/03/23 Destniy Magana, GANGA [address] [place] [address] PCP - General 03/04/23 Shilpa Escalona MD [facility]. [facility] [address] [place], [place] [id number] Peripheral Interventionalist CARDIOVASCULAR DISEASE 11/05/15 Jluis Singh MD [facility]. [facility] [address] [place], [place] [address] [place] Drying Rack Changer CARDIOVASCULAR DISEASE 10/06/15 documented as of this encounter
--- OUTSIDE RECORDS SUMMARY | 2025-04-07 16:23 | XMS_ITS | Clinical Summary ---
Author Organization [facility] Address [address] [place] [address] Care Team Providers Care Pit [employer]ace [employer]ter Name Role Phone Shilpa Escalona MD Unavailable [phone] Jluis Singh MD Unavailable [phone] Destiny Magana NP Primary Care Provider [phone] Allergies Active Allergy Reactions Criticality Noted Date Comments Codeine Other (see comment) 07/20/2020 Levofloxacin Nausea and Vomiting Low 05/03/2021 Medications aspirin EC (ASPIRIN EC) 81 MG tablet Take 1 tablet (81 mg total) by mouth daily. 016 Active fluticasone propionate 50 MCG/ACT nasal spray SPRAY 2 SPRAY(S) INTO EACH NOSTRIL EVERY DAY IN THE MORNING 019 Active traMADol 50 MG tablet Take 1-2 tablets (50-100 mg total) by mouth 3 (three) times daily as needed. 020 Active nitroglycerin 0.[address] 1 tablet (0.4 mg total) under the tongue every 5 (five) minutes as needed for Chest Pain. Max of 3 tabs, then call [phone] 25 tablet 1 022 Active albuterol sulfate HFA 108 (90 Base) MCG/ACT inhalerIndications:Shor tness of breath ProAir HFA 90 mcg/actuation aerosol inhaler TAKE 1 TO 2 PUFFS BY MOUTH EVERY 4 HOURS NEEDED FOR SHORTNESS OF BREATH 18 g 3 023 Active ALPRAZolam (XANAX) 0.25 MG tabletIndications:Anxie ty,Severe episode of recurrent major depressive disorder, without psychotic features (CMS/HCC HHS/HCC) TAKE 1 TABLET BY MOUTH 2 TIMES A DAY. 60 tablet 1 023 Active atorvastatin (LIPITOR) 20 MG tabletIndications:Pure hypercholesterolemia take 1 tablet by mouth everyday at bedtime 90 tablet 1 024 Active escitalopram (LEXAPRO) 20 MG tablet Take 1 tablet (20 mg total) by mouth daily. 024 Active omeprazole (PRILOSEC) 40 MG capsule Take 1 capsule (40 mg total) by mouth daily. 90 capsule 2 024 Active metoprolol succinate ER (TOPROL-XL) 25 MG 24 hr tablet TAKE 1 TABLET BY MOUTH EVERY DAY 30 tablet 3 025 Active oxyCODONE immediate release (ROXICODONE) 10 MG immediate release tabletIndications:Acute Pain < 7 Day Supply Take 1 tablet (10 mg total) by mouth every 6 (six) hours as needed for Pain. Indications: Acute Pain < 7 Day Supply 9 tablet 025 Active Additional Information Patient not taking.Reported on 12/29/2024 tamsulosin (FLOMAX) 0.4 MG Cap Take 1 capsule (0.4 mg total) by mouth daily. 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 Ischemic cardiomyopathy Pure hypercholesterolemia Essential hypertension Resolved Problems Problem Noted Date Diagnosed Date Resolved Date Preoperative clearance 10/08/201801/15 Pure hypercholesterolemia 11/26/2015 Encounters Date Type Department Care Team Description 03/17/2025 9:26 AM OPTICAL INSTRUMENTS SUPERVISOR - 03/17/2025 11:59 PM [facility] Hospital [place] [address] [place] [address] Saundra Manriquez, COMMERCIAL TITLE EXAMINER Discharge Disposition: Home or Self Care (Routine Discharge) 03/17/2025 Travel 03/13/2025 11:25 AM OPTICAL INSTRUMENTS SUPERVISOR - 03/13/2025 11:59 PM OPT[employer] INSTRUMENTS SUPERVISOR Hospital Encounter [facility] [address] [place] [address] Saundra Manriquez, COMMERCIAL TITLE EXAMINER Discharge Disposition: Home or Self Care (Routine Discharge) 03/13/[address] [facility] [address] [place] [address] Saundra Manriquez, COMMERCIAL TITLE EXAMINER 03/13/2025 Travel from Last 3 Months Immunizations Immunization Administration Dates Next Due Fluzone High Dose - >Age 65 (Prefilled Syringe) 02/28/2019 Influenza Adult (Generic) 04/10/2023,10/2021,04/19/2021,2019,02/24/2019,03/09/2018,12/19/2016 Pneumococcal (Pneumovax 23) 07/22/2015 Pneumococcal (Prevnar 13) 04/19/2021,05/22/2019 Tdap (Generic) 04/18/2013 Family History Medical History Relation Comments CABG Father CHF Paternal Grandfather Stroke Paternal Grandmother Relation Status Comments Father Paternal Grandfather Paternal Grandmother Social History Tobacco Use Types Packs/Day Years [...] Sex Assigned at Male 07/07/2024 10:19 AM OPTICAL INSTRUMENTS SUPERVISOR Legal Sex Male 11:59 PM CDT Gender Identity Male 12/17/2024 10:45 PM CDT Sexual Orientation Straight 12/17/2024 10 :45 PM CDT Occupation Industry Job Start Date Job End Date Not on file Not on file Not on file Not on file Last Filed Vital Signs Vital Sign Reading Time Taken Comments Blood Pressure 110/60 12/29/2024 12:49 PM CDT Pulse 87 12/29/2024 12:49 PM CDT Temperature 36.1 C (97 F) 12/18/2024 1:08 AM CDT Respiratory Rate 18 12/18/2024 1:08 AM CDT Oxygen Saturation 98% 12/29/2024 12:49 PM CDT Inhaled Oxygen Concentration - - Weight 82.6 kg (182 lb) 12/29/2024 12:49 PM CDT Height 175.3 cm (5' 9) 12/29/2024 12:49 PM CDT Body Mass Index 26.88 12/29/2024 12:49 PM CDT Plan of Treatment Upcoming Encounters Date Type Department Care Team (Late st Contact Info) Description 06/29/2025 11:30 AM OPTICAL INSTRUMENTS SUPERVISOR [facility] [address] [place] [address] Crista Kim FNP [address] [place] [address] Health Maintenance Due Date Last Done Comments ASCVD Statin 1950 Colorectal Cancer Screening Colonoscopy (10 Years) 1952 Hepatitis C 1970 Zoster Vaccines (1 of 2) 2002 RSV Immunization or 60+ Years (1 - Risk 60-74 years 1-dose series) 2012 Annual Medicare Wellness Visit 2017 DTaP, Tdap and Td Vaccines (2 - Td or Tdap) 04/18/2023 04/18/2013 PHQ-2 (Physician Vidal) 05/07/2024 ASCVD LDL 09/09/2024 09/10/2023, 04/06, 04/11/2022, Additional history exists COVID-19 Vaccine ( - season) 2025 Influenza Adult (#1) 2025 01/09/2024, 04/10/2023, 04/11/2022, Additional history exists Pneumococcal Vaccine: 50+ Years (3 of 3 - PCV20 or PCV21) 04/19/2026 04/19/2021, 05/22/2019, 07/22/2015 AAA SCREENING Completed 12/17/2024 Hepatitis A Vaccines Aged Out No long er eligible based on patient's age to complete this topic Meningococcal B Vaccine Aged Out No l onger eligible based on patient's age to complete this topic Meningococcal Vaccine Aged Out No viv timothy eligible based on patient's age to complete this topic RSV Immunizations Under 20 Months Aged Out No longer eligible based on patient's age to complete this topic Procedures Procedure Name Priority Date/Time Associated Diagnosis Comments CT SOFT TISSUE NECK W CON Routine 03/17/2025 10:09 AM OPTICAL INSTRUMENTS SUPERVISOR LPRD (laryngopharyngeal reflux disease) CREATININE Routine 03/13/2025 11:34 AM OPTICAL INSTRUMENTS SUPERVISOR Other seasonal allergic rhinitis CT ABD+PEL W CON STAT 12/17/2024 11:2 3 PM CDT LIPID PANEL Routine 09/10/2023 9:54 AM CDT Other fatigue Coronary artery disease involving kasaan coronary artery of kasaan heart without angina pectoris from Last 3 Months or Most Recently Relevant to Health Maintenance Results * CT SOFT TISSUE NECK W CON (03/17/2025 10:09 AM OPTICAL INSTRUMENTS SUPERVISOR) Anatomical Region Laterality Modality Neck Computed Tomogra phy 03/18/2025 3:06 PM OPTICAL INSTRUMENTS SUPERVISOR Impressions 03/23/2025 8:58 AM OPTICAL INSTRUMENTS SUPERVISOR IMPRESSION: 1. No acute findings within the neck. 2. Anterior cervical fusion hardware C5-C7 without evidence of acute hardware abnormality. Multilevel degenerative changes throughout the cervical spine, as above. 3. Atherosclerosis with approximately 60% stenosis of the proximal right ICA. Further evaluation with CTA of the neck is recommended to accurately characterize cirrhotic vasculature. 4. Nonspecific elongation and calcification of the right stylohyoid ligament. Recommend correlation with symptoms of fullness and foreign body sensation The attending radiologist has reviewed the image(s) and agrees with the content of this report. Ordered By: SAUNDRA MANRIQUEZ Interpreted By: Milad Blackwell DO, 03/18/2025 3:06 PM Narrative 03/23/2025 8:58 AM OPTICAL INSTRUMENTS SUPERVISOR [facility] [address] [place] [address] EXAMINATION: CT SOFT TISSUE NECK W CON DATE: 03/17/2025 9:39 AM HISTORY: Laryngeal pharyngeal reflux. Feels like something is stuck in throat for one year. COMPARISON: CT chest with contrast 02/13/2014. TECHNIQUE: Computed tomography of the neck was performed after intravenous administration of 80 mL of Isovue-370 according to routine protocol without immediate complication. A dose lowering technique was used for this procedure, which may include, but is not limited to, dose reduction technique, automated exposure control, the use of iterative reconstruction, and ALARA (As Low As Reasonably Achievable) / Image Gently techniques. FINDINGS: The patient is edentulous. The oral cavity, nasopharynx, oropharynx, hypopharynx, and larynx are otherwise unremarkable. The major salivary glands are symmetric. Atherosclerotic calcifications of the bilateral carotid bifurcation and proximal internal carotid arteries bilaterally, right greater than left. This results in approximately 60% stenosis of the proximal right ICA (2/40) by NASCET criteria. There is less than 50% luminal narrowing at the bifurcation bilaterally. The neck vasculature is otherwise unremarkable. The thyroid gland is unremarkable. No worrisome thyroid nodule is identified. No cervical lymphadenopathy. No acute intracranial abnormality. There are surgical changes of paranasal sinus surgery including bilateral maxillary antrostomies. The included paranasal sinuses and mastoid air cells are well aerated. The middle ear cavities are clear. There are bilateral lens replacements. The orbits/globes appear otherwise unremarkable. The included upper lungs are clear. The left vertebral artery arises just proximal to the origin of the left subclavian artery. After comparison with CT chest 02/13/2014, this appears to arise from the proximal origin of the left subclavian artery, normal anatomic variation. Surgical changes of anterior cervical discectomy and fusion with plate and screw fixation hardware at C5-C7. Fixation screws appear well-seated without evidence of acute hardware abnormality. There is osseous fusion at C4-C5. Facet alignment is preserved. Moderate to severe degenerative endplate change and facet arthropathy at C3-C4. Mild to moderate degenerative change at C7-T1. Degenerative changes are also noted at the atlantodental joint with a somewhat granular appearance of calcification around the dens/transverse ligament, nonspecific but can also be seen in setting of CPPD or HADD. No acute osseous abnormality. No destructive osseous lesion. There is elongation of the right styloid process with nonspecific calcification of the stylohyoid ligament. This results in possible compression of the right internal jugular vein which has a slitlike appearance relative to the contralateral side (2/27). Procedure Note Teddy Sousa MD - 03/23/2025 [facility] [address] [place] [address] EXAMINATION: CT SOFT TISSUE NECK W CON DATE: 03/17/2025 9:39 AM HISTORY: Laryngeal pharyngeal reflux. Feels like something is stuck inthroat for one year. COMPARISON: CT chest with contrast 02/13/2014. TECHNIQUE: Computed tomography of the neck was performed afterintravenous administration of 80 mL of Isovue-370 according to routineprotocol without immediate complication. A dose lowering technique wasused for this procedure, which may include, but is not limited to, dosereduction technique, automated exposure control, the use of iterativereconstruction, and ALARA (As Low As Reasonably Achievable) / Image Gentlytechniques. FINDINGS: The patient is edentulous. The oral cavity, nasopharynx, oropharynx,hypopharynx, and larynx are otherwise unremarkable. The major salivaryglands are symmetric. Atherosclerotic calcifications of the bilateralcarotid bifurcation and proximal internal carotid arteries bilaterally,right greater than left. This results in approximately 60% stenosis of theproximal right ICA (2/40) by NASCET criteria. There is less than 50%luminal narrowing at the bifurcation bilaterally. The neck vasculature isotherwise unremarkable. The thyroid gland is unremarkable. No worrisomethyroid nodule is identified. No cervical lymphadenopathy. No acute intracranial abnormality. There are surgical changes of paranasalsinus surgery including bilateral maxillary antrostomies. The includedparanasal sinuses and mastoid air cells are well aerated. The middle earcavities are clear. There are bilateral lens replacements. Theorbits/globes appear otherwise unremarkable. The included upper lungs are clear. The left vertebral artery arises justproximal to the origin of the left subclavian artery. After comparisonwith CT chest 02/13/2014, this appears to arise from the proximal originof the left subclavian artery, normal anatomic variation. Surgical changes of anterior cervical discectomy and fusion with plate andscrew fixation hardware at C5-C7. Fixation screws appear well-seatedwithout evidence of acute hardware abnormality. There is osseous fusion atC4-C5. Facet alignment is preserved. Moderate to severe degenerativeendplate change and facet arthropathy at C3-C4. Mild to moderatedegenerative change at C7-T1. Degenerative changes are also noted at theatlantodental joint with a somewhat granular appearance of calcificationaround the dens/transverse ligament, nonspecific but can also be seen insetting of CPPD or HADD. No acute osseous abnormality. No destructiveosseous lesion. There is elongation of the right styloid process with nonspecificcalcification of the stylohyoid ligament. This results in possiblecompression of the right internal jugular vein which has a slitlikeappearance relative to the contralateral side (/). IMPRESSION: 1. No acute findings within the neck. 2. Anterior cervical fusion hardware C5-C7 without evidence of acutehardware abnormality. Multilevel degenerative changes throughout thecervical spine, as above. 3. Atherosclerosis with approximately 60% stenosis of the proximal rightICA. Further evaluation with CTA of the neck is recommended to accuratelycharacterize cirrhotic vasculature. 4. Nonspecific elongation and calcification of the right stylohyoidligament. Recommend correlation with symptoms of fullness and foreign bodysensation The attending radiologist has reviewed the image(s) and agrees with thecontent of this report. Ordered By: SAUNDRA MANRIQUEZ Interpreted By: Milad Blackwell DO, 03/18/2025 3:06 PM Saundra Manriquez COMMERCIAL T[employer] EXAMINER CT Final Result * (ABNORMAL) CREATININE (03/13/2025 11:34 AM OPTICAL INSTRUMENTS SUPERVISOR) CREATININE S/P/B 1.09 0.7 - 1.3 MG/DL 03/13/2025 11:54 AM OPTICAL INSTRUMENTS SUPERVISOR [facility] GFR ESTIMATE 72(L) >90 ML/MIN/1.7 3 M2 03/13/2025 11:54 AM OPTICAL INSTRUMENTS SUPERVISOR [facility] Comment: NOTE: eGFR is not calculated for patients <18 years of age. This is an estimated GFR calculation using the new CKD EPI creatinine equation without race and so does not require a correction factor for race. This estimated GFR should not be used for calculating drug doses. 03/13/2025 11:3 4 AM OPTICAL INSTRUMENTS SUPERVISOR us Saundra Manriquez NP LABORATORY Final Result [facility] [address] [place] [address], [place] [phone] * CT ABD+PEL W CON (12/17/2024 11:23 PM CDT) Anatomical Region Laterality Modality Abdomen Computed Tomogra phy 12/17/2024 11:3 3 PM CDT Impressions 12/17/2024 11:42 PM CDT Impression: 1. Obstructing 2 mm stone in the distal right ureter. 2. Additional chronic nonemergent findings described above. Referred By: Interpreted By: Lucas Hadley MD, 12/17/2024 11:33 PM Narrative 12/17/2024 11:42 PM CDT [facility] [address] [facility]. [place] [id number] Examination: CT abdomen and pelvis with IV contrast. Clinical Information: Right flank pain. Comparison:None Technique: IV contrast: 100 mL Isovue 370. Oral contrast: None. Technical comments: Standard technique. Dose reduction: This CT exam was performed using one or more of the following dose reduction techniques: Automated exposure control, adjustment of the mA and/or kV according to patient size, and/or use of iterative reconstruction technique. Findings: LOWER CHEST Heart is normal in size. Coronary artery calcifications. Lung bases are clear. No pleural or pericardial effusions. UPPER ABDOMEN Liver and bile ducts: No focal liver lesion. Portal vein and hepatic veins are patent. No biliary dilatation. Gallbladder: Cholecystectomy. Pancreas: Normal. Spleen: Normal. RETROPERITONEUM Adrenals: Normal. Kidneys: There is a 2 mm stone in the distal right ureter resulting in minimal asymmetric right and hydroureteronephrosis. Mild right perinephric fat stranding. Lymph nodes: No lymphadenopathy in the abdomen or pelvis. BOWEL AND PERITONEUM Bowel: Normal in caliber and wall thickness. The appendix is normal. Free air or fluid: None. VASCULATURE Mild atherosclerosis of the abdominal aorta. PELVIS No abnormality. BONES/SOFT TISSUES Posterior fusion hardware spanning L3-L4. Procedure Note Lucas Hadley, DO - 12/17/2024 [facility] [address] [place] [address] Examination: CT abdomen and pelvis with IV contrast. Clinical Information: Right flank pain. Comparison:None Technique: IV contrast: 100 mL Isovue 370. Oral contrast: None. Technical comments: Standard technique. Dose reduction: This CT exam was performed using one or more of thefollowing dose reduction techniques: Automated exposure control,adjustment of the mA and/or kV according to patient size, and/or use ofiterative reconstruction technique. Findings: LOWER CHEST Heart is normal in size. Coronary artery calcifications. Lung bases areclear. No pleural or pericardial effusions. UPPER ABDOMEN Liver and bile ducts: No focal liver lesion. Portal vein and hepaticveins are patent. No biliary dilatation. Gallbladder: Cholecystectomy. Pancreas: Normal. Spleen: Normal. RETROPERITONEUM Adrenals: Normal. Kidneys: There is a 2 mm stone in the distal right ureter resulting inminimal asymmetric right and hydroureteronephrosis. Mild rightperinephric fat stranding. Lymph nodes: No lymphadenopathy in the abdomen or pelvis. BOWEL AND PERITONEUM Bowel: Normal in caliber and wall thickness. The appendix is normal. Free air or fluid: None. VASCULATURE Mild atherosclerosis of the abdominal aorta. PELVIS No abnormality. BONES/SOFT TISSUES Posterior fusion hardware spanning L3-L4. Impression: 1. Obstructing 2 mm stone in the distal right ureter. 2. Additional chronic nonemergent findings described above. Referred By: Interpreted By: Lucas Hadley MD, 12/17/2024 11:33 PM Bebeto Singh MD CT Final Result * (ABNORMAL) LIPID PANEL (09/10/2023 9:54 AM CDT) CHOLESTEROL 123 <200.0 MG/DL 09/10/2023 11:05 AM CDT [facility] TRIGLYCERIDES 75 <150 MG/DL 09/10/2023 11:05 AM T [facility] HDL 39(L) >40.0 MG/DL 09/10/2023 11:05 AM T [facility] LDL (CALCULATED) 69 <100 MG/DL 09/10/19 11:05 AM T [facility] NON HDL CHOLESTEROL 84 <130 MG/DL 09/09 11:05 AM [facility] CHOL/HDL RATIO 3.2 0.0 - 4.5 09/10/2023 11:05 AM [facility] VLDL CALCULATION 15 5 - 55 MG/DL 09/10/2023 11:05 AM [facility] LIPID INTERPRETATION 09/10/2023 11:05 AM [facility] Comment: [facility] CON[facility]ENS[facility] REPORT RECOMMENDATIONS: ADULT CHILD LOW RISK: CHOLESTEROL <200 <170 TRIGLYCERIDE <150 --- HDL >=60 --- LDL <100 <110 BORDERLINE: CHOLESTEROL 200-239 170-199 TRIGLYCERIDE 150-199 --- HDL 40-59 --- LDL 100-159 110-129 HIGH RISK: CHOLESTEROL >=240 >=200 TRIGLYCERIDE >=200 --- HDL <40 --- LDL >=160 >=130 09/10/2023 9:54 AM CDT Crista NIELSEN LABORATORY Final Result [facility] [address] [place] [address], from Last 3 Months or Most Recently Relevant to Health Maintenance Additional Health Concerns Infection Onset Date Last Indicated 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 [facility] [address] [place], [place] [id number] Peripheral Interventionalist CARDIOVASCULAR DISEASE 11/05/15 Jluis Singh MD [facility]. [address] [place] [address] [place] [employer] Supervisor CARDIOVASCULAR DISEASE 10/06/15
--- OUTSIDE RECORDS SUMMARY | 2025-04-07 16:23 | XMS_ITS | Clinical Summary ---
Author Organization [facility] Address [address] 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 This disclosure is being madepursuant to the Care Everywhere program and may not contain all information available regarding this patient. Last updated 18.[facility] Allergies No known active allergies Medications * Be aware that medications may not be up to date on this document. Alwaysverify current medications with the patient. ALPRAZolam (XANAX) 0.25 MG tablet Take 1 tablet by mouth 3 times daily 1 Active aspirin EC (ECOTRIN) 81 MG tablet Take 1 tablet by mouth once daily Active atorvastatin (LIPITOR) 40 MG tablet Take 1 tablet by mouth once daily 1 Active baclofen (LIORESAL) 10 MG tablet Take 10 mg by mouth every 8 hours 1 Active clopidogrel (PLAVIX) 75 MG tablet Take 75 mg by mouth once daily 1 Active escitalopram (LEXAPRO) 10 MG tablet Take 10 mg by mouth once daily 1 Active metoprolol succinate XL 24hr (TOPROL XL) 25 MG tablet Take 25 mg by mouth once daily 1 Active nitroGLYCERIN (NITROSTAT) 0.4 MG tablet nitroglycerin 0.4 mg sublingual tablet PLEASE SEE ATTACHED FOR DETAILED DIRECTIONS 0 Active pregabalin (LYRICA) 25 MG capsule Take 1 capsule by mouth 2 times daily 1 Active traMADol (ULTRAM) 50 MG tablet Take 1 tablet by mouth 3 times daily as needed 1 Active HYDROcodone-ac etaminophen (NORCO) 5-325 MG tablet Take 1 tablet by mouth every 6 hours as needed 1 Active albuterol HFA (PROVENTIL;ELOY TOLIN;PROAIR) 108 (90 Base) MCG/ACT inhaler Inhale 2 puffs by mouth 4 times daily as needed 1 Active Family History Medical History Relation Name Comments Arthritis - Rheumatoid Father CVA Father Arthritis - Rheumatoid Maternal Grandfather Arthritis - Rheumatoid Maternal Grandmother Arthritis - Rheumatoid Mother Cancer - Other Mother Asthma Other Arthritis - Rheumatoid Paternal Grandfather Arthritis - Rheumatoid Paternal Grandmother Relation Name Status Comments Father Maternal Grandfather Maternal Grandmother Mother Other Paternal Grandfather Paternal Grandmother Social History Tobacco Use Types Packs/Day Years Used Date Smoking Tobacco: Former Smokeless Tobacco: Never Alcohol Use Standard Drinks/Week Comments Not Currently 0 (1 standard drink = 0.6 oz pur e alcohol) Sex and Gender Information Value Date Recorded Sex Assigned at Not on file Legal Sex Male 6:11 PM CDT Gender Identity Not on file Sexual Orientation Not on file Last Filed Vital Signs Vital Sign Reading Time Taken Comments Blood Pressure 140/68 12/06/2020 1:18 PM CDT Pulse 65 12/06/2020 1:18 PM CDT Temperature 36.2 C (97.2 F) 12/06/2020 1:18 PM CDT Respiratory Rate 18 12/06/2020 1:18 PM CDT Oxygen Saturation 98% 12/06/2020 1:18 PM CDT Inhaled Oxygen Concentration - - Weight 88.1 kg (194 lb 4.8 oz) 12/06/2020 1:18 P M CDT Height 175.3 cm (5' 9) 12/06/2020 1:18 PM CDT Body Mass Index 28.69 12/06/2020 1:18 PM CDT Plan of Treatment Health Maintenance Due Date Last Done Comments OGJOLENE (AGES 45-75) - COL ON CA SCREENING 1952 COLON MONITORING 1952 COLONOSCOPY - COLON CA SCREENING 1952 CT COLONOGRAPHY - COLON CA SCREENING 1952 Colorectal Cancer Screening 1952 FIT - COLON CA SCREENING 1952 FLEX SIG - COLON CA SCREENING 1950 MEDICARE AWV 12 MONTHS 1952 HEPATITIS C SCREENING 09/04/1970 DTAP/TDAP/TD VACCINES (1 - Tdap) 09/09/1971 PNEUMOCOCCAL VACCINE 50+ (1 of 1 - PCV) 2002 ZOSTER VACCINE (1 of 2) 2002 AAA SCREENING 2017 SCREENING FOR DIABETES 12/06/2020 DEPRESSION SCREENING 05/07/2024 COVID-19 VACCINE (1 - 2024-2 6 season) 2025 INFLUENZA VACCINE (#1) 2025 0, 02/24/2019, 03/09/2018 Respiratory Syncytial Virus (RSV) Vaccine Pt: or over 60 yrs (1 - 1-dose 75+ series) 09/09/2027 HEPATITIS B VACCINE Aged Out No longe r eligible based on patient's age to complete this topic HIB VACCINE Aged Out No longer eligi ble based on patient's age to complete this topic HPV VACCINE Aged Out No longer eligi ble based on patient's age to complete this topic MENINGOCOCCAL (Group B) VACCINE SHARED DECISION-MAKING Aged Out No longer eligible based on patient's age to complete this topic MENINGOCOCCAL GROUPS A/C/Y/W VACCINE Aged Out No longer eligible b ased on patient's age to complete this topic Insurance MEDICARE [facility] * Guarantor: MOTAONOFREMADHU Account Type Relation to Patient Date of Phone Billing Address Personal/Family [address] [place] [address] MEDICARE ANTHEM * Guarantor: MADHU MOTA Account Type Relation to Patient Date of Phone Billing Address Personal/Family [address] [place] [address] MEDICARE ANTHEM * Guarantor: MADHU MOTA Type Relation to Patient Date of Phone Billing Address Personal/Family [address] [place] [address] MEDICARE [facility] Care Teams Bonding Machine Tender Relationship Specialty Start Date End Date Destiny Magana APRN-CNP [address] [id number] PCP - General 12/06/20
== END 2025-04-07 15:02 | disposition home or self-care (01) ==
PROVIDERS: PCP Nurse Practitioner Adult Health; Visit Provider Nurse Practitioner Adult Health
DX: I65.21 Occlusion and stenosis of right carotid artery (principal)
CPT/HCPCS: 70498; Q9967